=== PATIENT | female | born 1930 | race Caucasian/White ===

== ENCOUNTER → 2016-03-24 | Outpatient (CLI) | payer BC ==
[~2016-03-24] MED LIST: AMLO2.5T PO; ASPEC81 PO; ATOR-22 PO; ATV/1 PO; CLBCRM30 EXT; ESCI1TAB9 PO; GABA-112 PO; GABA1CAP PO; MAGN400T24 PO; MECL25TA2 PO; METO50TA16 PO; PROAIR HFA INH; TRIA75TA53 PO; TRMCR130WC TOP
[2016-03-24 13:15] LABS: BASO % 0.8 %; BASO ABS # 0.05 K/uL (0-0.2); COMPLETE YES; EOS % 1.2 %; HEMATOCRIT 39.6 % (37-47); IG% 0.2 %; LYMPH % 16.3 %; LYMPH ABS # 0.98 K/uL (1.2-3.4); MEAN CELL VOLUME 92.7 fL (80-100); MEAN CORPUSCULAR HEMOGLOBIN 30.4 pg (25-34); MEAN CORPUSCULAR HGB CONC 32.8 g/dl (32-36); MEAN PLATELET VOLUME 9.8 fL (7.4-10.4); MONO % 9.8 %; NEUT % 71.7 %; PLATELET COUNT 222 K/uL (130-400); RED BLOOD COUNT 4.27 M/uL (4.2-5.4); WHITE BLOOD COUNT 6.02 K/uL (4.8-10.8)
[2016-03-24 13:32] LABS: ALB/GLOB RATIO 1.1 (0.9-2); ALT/SGPT 20 U/L (12-78); AST/SGOT 17 U/L (15-37); BLOOD UREA NITROGEN 18 mg/dl (7-18); BUN/CREATININE RATIO 16.2 (10-20); CALCIUM 9.1 mg/dl (8.5-10.1); CARBON DIOXIDE 32 mmol/L (21-32); CHLORIDE 100 mmol/L (98-107); GLUCOSE 91 mg/dl (70-99); SODIUM 141 mmol/L (136-145)
[2016-03-24 13:33] LABS: ALKALINE PHOSPHATASE 136 U/L (45-117)
== END | disposition home or self-care (01) ==
LOC: C.LABBC 11:53
PROVIDERS: ATTEND Internal Medicine
DX: G60.9 Hereditary and idiopathic neuropathy, unspecified (principal)

== ENCOUNTER → 2016-09-15 | Outpatient (CLI) | payer BC ==
--- NOTE | 2016-09-15 13:43 | MAMMOGRAPHY REPORT ---
BILATERAL DIGITAL SCREENING MAMMOGRAM WITH CAD: 09/15/2016 CLINICAL HISTORY: Routine screening. Patient has no complaints. TECHNIQUE: Current study was also evaluated with a Computer Aided Detection (CAD) system. Bilateral CC and MLO views were obtained. COMPARISON: Comparison is made to exams dated: 09/15/2015 mammogram, 09/11/2014 mammogram, 09/10/2013 ma mmogram, 09/07/2011 mammogram, 09/01/2010 mammogram, and 09/07/2012 mammogram - [facility] nter. BREAST COMPOSITION: There are scattered areas of fibroglandular density in both breasts. FINDINGS: No suspicious masses, calcifications, or areas of architectural distortion are noted in ei ther breast. There has been no significant interval change compared to prior exams. Scattered bilater al benign-appearing calcifications are not significantly changed. IMPRESSION: ACR BI-RADS CATEGORY 2: BENIGN There is no mammographic evidence of malignancy. A 1 year screening mammogram is recommended. The pa tient will receive written notification of the results. Approximately 10% of breast cancers are not detected with mammography. A negative mammographic report should not delay biopsy if a clinically suggestive mass is present. Keena Enriquez M.D. ah/:09/15/2016 12:14:01 Occupational Health Physician: Tawanna TORRES(R)(M), [facility] letter sent: Normal 1/2 BI-RADS Code: ACR BI-RADS Category 2: Benign
== END | disposition home or self-care (01) ==
LOC: C.MAMM 10:53
PROVIDERS: ATTEND Internal Medicine
DX: Z12.31 Encounter for screening mammogram for malignant neoplasm of breast (principal)

== ENCOUNTER → 2016-10-27 | Outpatient (CLI) | payer BC ==
[2016-10-27 13:30] LABS: BASO % 0.8 %; BASO ABS # 0.05 K/uL (0-0.2); COMPLETE YES; EOS % 1.1 %; IG% 0.3 %; LYMPH % 16.6 %; LYMPH ABS # 1.06 K/uL (1.2-3.4); MEAN CELL VOLUME 92.6 fL (80-100); MEAN CORPUSCULAR HEMOGLOBIN 30.6 pg (25-34); MEAN PLATELET VOLUME 9.5 fL (7.4-10.4); MONO % 10.5 %; NEUT % 70.7 %; PLATELET COUNT 250 K/uL (130-400); RED BLOOD COUNT 4.32 M/uL (4.2-5.4); WHITE BLOOD COUNT 6.38 K/uL (4.8-10.8)
[2016-10-27 13:55] LABS: BLOOD UREA NITROGEN 17 mg/dl (7-18); BUN/CREATININE RATIO 15.4 (10-20); CALCIUM 9.1 mg/dl (8.5-10.1); CARBON DIOXIDE 33 mmol/L (21-32); CHLORIDE 96 mmol/L (98-107); GLUCOSE 100 mg/dl (70-99); POTASSIUM 3.7 mmol/L (3.5-5.1); SODIUM 134 mmol/L (136-145)
== END | disposition home or self-care (01) ==
LOC: C.LABBC 11:06
PROVIDERS: ATTEND Internal Medicine
DX: E53.8 Deficiency of other specified B group vitamins (principal)

== ENCOUNTER → 2016-10-29 | Outpatient (CLI) | payer BC ==
--- NOTE | 2016-10-29 10:30 | DIAGNOSTIC IMAGING REPORT ---
(BARIUM SWALLOW) ESOPHAGUS CLINICAL HISTORY: R13.10 [id number] COMPARISON STUDY: None FLUOROSCOPY TIME: 1.1 minutes. FINDINGS: Patient initiates swallowing function well. There is no evidence for aspiration. Esophagus is normal in course and caliber. Small hiatal hernia. Mild gastroesophageal reflux. Patient ingested the barium tablet easily with which passed easily to the stomach. IMPRESSION: 1. Normal swallowing function. 2. Small hiatal hernia. 3. Mild gastroesophageal reflux. The above report was generated using voice recognition software. It may contain grammatical, syntax or spelling errors. Electronically signed by: Abdoul Petersen M.D. 10/29/2016 10:28 AM Dictated Date/Time: 10/29/2016 10:27 AM
== END | disposition home or self-care (01) ==
LOC: C.RAD 09:31
PROVIDERS: ATTEND Internal Medicine
DX: R13.10 Dysphagia, unspecified (principal)

== ENCOUNTER → 2016-11-09 | Outpatient (CLI) | payer BC ==
--- NOTE | 2016-11-09 13:41 | DIAGNOSTIC IMAGING REPORT ---
VIDEO SWALLOW HISTORY: R13.10 Dysphagia [id number] TECHNIQUE: Video fluoroscopic evaluation of swallowing was performed in the AP and lateral projections by the speech pathology staff. The patient is fed nectar-thick and thin liquid barium, a barium coated wafer, and barium pudding. FLUOROSCOPY TIME: 2.1 minutes. A cine loop submitted. COMPARISON STUDY: Barium swallow 10/29/2016. FINDINGS: There is normal hyoid excursion and epiglottic deflection. There are a few episodes of penetration with the thin liquid barium. However, no evidence for aspiration. Mild to moderate vallecular residue with the thicker barium consistencies. This clears during the second swallow. Mild esophageal dysmotility. IMPRESSION: 1. No aspiration identified. 2. Please see the speech pathologist report for detailed findings and recommendations. Electronically signed by: Darius Merchant M.D. 11/09/2016 1:39 PM Dictated Date/Time: 11/09/2016 1:38 PM
--- NOTE | 2016-11-09 14:51 | SWALLOWING EVALUATION ---
HISTORY: This 86 year old woman was referred for a video swallow study at [facility] in order to rule out aspiration and identify the safest consistencies for optimal oral intake. The patient reports that she has episodes of coughing while she eats, and it is not specific to any food or liquid. She participated in a Barium Swallow Study on 10/29/16, which revealed normal swallowing function, but the patient was found to have a small hiatal hernia and mild reflux. PMH is significant for DVT, HTN, and pneumonia. Currently the patient's diet is regular. PROCEDURE: The patient was seen in the Radiology Department of [facility] for the VFSS. Cursory examination of the oral cavity revealed and upper denture that fit well, natural lowers in good condition for her age. Movement of the articulators was wnl. The patient was seated upright on a stool and was viewed in both the Anterior-Posterior (A-P) and Lateral planes. Volitional phonation exercises completed in the A-P plane revealed bilateral vocal fold movement and vocal intensity was judged to be wnl. In the lateral plane, the patient was given the following boluses: 1 tsp. thin liquid barium x 2, single swallow thin liquid barium self-presented from a cup x2, sequential swallows of thin liquid barium self-presented from a straw, 1 tsp. nectar-thick liquid barium, single swallow nectar-thick liquid barium self-presented from a cup x1, 1 tsp. barium pudding, and 1 club cracker coated in barium pudding. The patient was then repositioned into the A-P plane and given the following boluses: 1 cup sip nectar thick barium and 1 tsp. barium pudding. RESULTS: Oral Stage: Lip closure was adequate. The patient was able to maintain a cohesive liquid bolus upon command without lateral or posterior escape. Mastication and lingual motion for bolus transport was noted to be slow. There was a retention lining the tongue and palate after the swallow. The initiation of the pharyngeal swallow was delayed and triggered when the bolus head reached valleculae. Pharyngeal Stage: Soft palate elevation was complete. Laryngeal elevation revealed partial superior movement of the thyroid cartilage and partial approximation of the arytenoids to the epiglottic base. Anterior hyoid excursion was partially reduced. Epiglottic deflection was incomplete where deflection did not progress past the horizontal position. Laryngeal vestibular closure was incomplete as a narrow column of contrast was located in the vestibule at the height of the swallow. The pharyngeal stripping wave was present yet diminished. Pharyngeal contraction was complete. There was partial distention and partial duration of the opening to the pharyngoesophageal segment (PES). Tongue base retraction was reduced, with a narrow column of contrast located between the tongue base and pharyngeal wall during the swallow. There was retention located in the valleculae and along the epiglottis after the swallow. There was evidence of laryngeal penetration of thin liquids without aspiration. The patient also presented with increased vallecular retention as viscosity of the boluses increased. A liquid wash or second swallow assisted to clear the majority of the retention. No other difficulty identified. Esophageal stage: There was distal esophageal retention with retrograde flow below the PES that cleared with a liquid wash. SUMMARY/RECOMMENDATIONS: This patient presents with mild verónica-pharyngeal dysphagia. The patient also presents with s/s of esophageal dysfunction. The following is recommended: 1. "Slippery" regular diet, thin liquids. Avoid foods that are dry, thick, pasty, or doughy. Use condiments such as butter, gravy, and sauce to assist in keeping food moist and slippery. 2. Aspiration precautions, straws OK. Fully upright while eating and 30 minutes after meals. Do not lay flat, elevate head of the bed to at least 30 degrees at all time, to include while sleeping. 3. Safe swallow strategies: Alternate solids and liquids. Rest breaks, small frequent meals as needed. 4. Consider follow up GI as needed with any increased c/o esophageal dysfunction A summary of the results and recommendations was discussed with the patient and family immediately following the study with verbal understanding. Also provided with verbal and written education re: a slippery diet with verbal understanding. Thank you for referral of this patient. Please contact me at if any additional information is needed.
== END | disposition home or self-care (01) ==
LOC: C.RAD 12:48
PROVIDERS: ATTEND Internal Medicine
DX: R13.10 Dysphagia, unspecified (principal)

== ENCOUNTER → 2017-01-19 | Outpatient (CLI) | payer BC ==
--- NOTE | 2017-01-19 16:28 | DIAGNOSTIC IMAGING REPORT ---
TWO VIEW CHEST CLINICAL HISTORY: Chest wall pain of several days' duration.. FINDINGS: PA and lateral chest radiographs are compared to study dated 12/01/2015 and correlated with chest CT dated 03/06/2012. The cardiomediastinal silhouette is unremarkable. There is atherosclerotic calcification of the thoracic aorta. Emphysema and chronic interstitial thickening are similar to previous. There are scattered calcified granulomas. Trace pleural effusions are suspected. No airspace consolidation is seen typical for pneumonia. Apical scarring is observed. There is no pneumothorax. The skeletal structures are osteopenic. The bony thorax appears intact. IMPRESSION: 1. Emphysema. 2. Trace pleural effusions are noted. No airspace consolidation is identified typical for pneumonia Electronically signed by: Stefan Peralta M.D. 01/19/2017 4:27 PM Dictated Date/Time: 01/19/2017 4:25 PM
--- NOTE | 2017-01-19 16:49 | DIAGNOSTIC IMAGING REPORT ---
THORACIC SPINE 3 VIEWS ROUTINE HISTORY: Pain CHEST WALL PAIN COMPARISON: None. FINDINGS: There is no fracture. No subluxation. Moderate degenerative disc changes throughout the entire thoracic region. No evidence for compression deformity. IMPRESSION: No fracture or subluxation within the thoracic spine. Moderate degenerative disc changes throughout The above report was generated using voice recognition software. It may contain grammatical, syntax or spelling errors. Electronically signed by: Abdoul Petersen M.D. 01/19/2017 4:48 PM Dictated Date/Time: 01/19/2017 4:48 PM
== END | disposition home or self-care (01) ==
LOC: C.RADBC 16:03
PROVIDERS: ATTEND Physician Assistant
DX: R07.89 Other chest pain (principal); J43.9 Emphysema, unspecified; J90 Pleural effusion, not elsewhere classified

== ENCOUNTER → 2017-03-16 | Outpatient (CLI) | payer BC ==
[2017-03-16 13:22] LABS: ALBUMIN 3.9 gm/dl (3.4-5.0); ALT/SGPT 18 U/L (12-78); BLOOD UREA NITROGEN 15 mg/dl (7-18); CALCIUM 8.9 mg/dl (8.5-10.1); CARBON DIOXIDE 31 mmol/L (21-32); CHOLESTEROL 174 mg/dl (0-200); GLUCOSE 95 mg/dl (70-99); POTASSIUM 3.8 mmol/L (3.5-5.1); SODIUM 132 mmol/L (136-145)
[2017-03-16 13:33] LABS: ALKALINE PHOSPHATASE 115 U/L (45-117); AST/SGOT 16 U/L (15-37); LDL CHOLESTEROL CALCULATED 74 mg/dl; TOTAL PROTEIN 7.7 gm/dl (6.4-8.2)
== END | disposition home or self-care (01) ==
LOC: C.LABBFT 10:30
PROVIDERS: ATTEND Internal Medicine
DX: E78.5 Hyperlipidemia, unspecified (principal); E53.8 Deficiency of other specified B group vitamins

== ENCOUNTER → 2017-05-23 | Outpatient (CLI) | payer BC ==
[~2017-05-23] MED LIST changes: +GABA100C13 PO; -GABA1CAP PO
--- NOTE | 2017-05-24 06:22 | PAP/PSG TECHNICIAN REPORT ---
[facility] Well Puller Polysomnogram Report Study name: None Report date: 05/24/2017 Study date: 05/23/2017 Referring Physician: Dr. Burton Borja Name: SUDHIR ANDERSON Interpreting Physician: Dario Avina M.D. Date of : 1930 Well Puller: Tameka Knott RPSGT. Sex: Female Age: 86 StudyType: PSG Weight: 163 lbs Height: 86 years, Height Neck Circum:15.25in. BMI: Medications: Pantoprazole 40mg, Lorazepam 1mg, Pro Air HFA 108mcg/act, Atorvastatin 20mg, Amlodipine 2.5mg, Metoprolol 50mg, Triamterene -HCTZ 37.5-25mg, Escitalopram 10mg, Gabapentin 100mg, Meclizine 25mg, Cyanocobalamin 1000mcg/ml, EDD63es, Magnesium Oxide 400mg Patient History Study started on room air with no ETCO2 monitoring in room #8. 86 yr old female here tonight for a possible split night study. She was diagnosed with JUAN but has not been compliant. She is fatigued. She had surgery on her nose and has not used her cpap in over a year because the mask irritated her nose. She has been told that she snores. She has headaches. Her ESS=8/21.Neck circ=15.25inches. Parameters Monitored NPSG: E1-M2, E2-M1, Fp1-M2, Fp2-M1, F3-M2, F4-M2, F4-M1, C3-M2, C4-M2, C4-M1, O1-M2, O2-M2, O2-M1, T3-M2, T4-M1, P3-M2, P4-M1, CHIN1, CHIN2, HR, EKG, Legs, PFLOW, SNOR, FLOW, CFLOW, Tidal Volume, THOR, ABDO, SpO2, PLTH, CPRESS, ETCO2 Wave, ETCO2, pH Sleep Architecture Sleep Stages Time at Lights Off 8:55:16 PM STAGES Time (min.) TST (%) Time at Lights On 5:32:16 AM Wake 228.0 -- Total Recording Time (TRT) 517.00 min. N1 6.5 2 Total Sleep Period (TSP) 395.5 min. N2 212.5 74 Total Sleep Time (TST) 289.0min. N3 49.5 17 Awake Time 228.0 min. REM 20.5 7 Wake after Sleep Onset 153.5 min. Sleep Efficiency (SE) 56 % Sleep Onset Latency (MAY) 74.5 min. Number of Stage 1 Shifts None Awakenings 10 Stage Changes 39 Number of REM periods 1 REM 20.5 7 REM Latency 375.0 min. NREM 268.5 93 Body Position Analysis Supine Right Left Side Prone Vertical Total Sleep Time (min.) 203.1 115.0 96.5 211.50 0.0 0.0 Total Sleep Time (%) 27% 40% 33% 73 0% N/A% Total Sleep Time REM (min.) 20.5 0.0 0.0 None 0.0 0.0 Total Sleep Time NREM (min.) 57.0 115.0 96.5 None 0.0 0.0 Intermittent Wake (min.) 125.6 55.9 46.5 None 0.0 0.0 Total Sleep Period (%) 21% None None None None None Arousals Myoclonus (PLM) * Events Count Index Events Count Index Spontaneous 10 2 Events Awake (PLMW) 29 7.6 Respiratory 0 0.0 Events Asleep w/ Arousal (PLMA) 0 0.0 PLM 0 0 Events Asleep w/o Arousal (PLMS) 66 13.7 Snoring 3 1 Total Asleep 66 13.7 Total 13 3 Total 95 11 Respiratory Analysis * CA OA MA CH H RERA Total Count 0 1 0 0 31 0 32 Index 0.0 0.2 0.0 0 6.4 0 6.6 Mean Duration 0.0 29.4 0.0 0.00 19.7 0.0 20.0 Longest Duration 0.0 29.4 0.0 0.00 0.0 0.0 44.1 Respiratory Event Summary Total Supine ~Supine Right Left Prone REM NREM Apneas Count 1 1 0 0 0 N/A 0 1 Index 0.2 1 0 0.0 0.0 N/A 0 0 Hypopneas (4% Desat) Count 31 11 20 12 8 N/A 7 24 Index 6.4 8.5 6 6.3 5.0 N/A 20.5 5.4 Apneas & All Hypopneas Count 32 12 20 12 8 N/A 7 25 Index 6.6 9 6 6 5 N/A 20.5 5.6 Respiratory Events (Furniture Installer+All Hyp+RERA) Count 32 12 20 12 8 N/A 7 25 Index 6.6 9 6 6.3 5.0 N/A 20.5 5.6 Respiratory Related Arousal Count 0 12 0 0 0 N/A 0 0 Index 0.0 0 0 0 0 N/A 0 0 Snoring Analysis Supine Right Left Prone REM NREM Total Snore duration 2.6 min Snores count 38 45 14 N/A 31 66 97 Snore mean duration 1.6 Sec Snores index 29 23 9 N/A 90.7 14.7 20.1 TST with snoring (%) 0.9% Desaturation Event Summary: Minimum %SpO2 Event Count Mean/Min/Max Duration(sec.) Desaturation Index % Time In Bed > 90 4 18.4 / 16.8 / 21.0 5.3 8.8 86 - 90 40 20.1 / 9.0 / 57.5 7.6 61.3 81 - 85 22 20.7 / 4.3 / 57.5 9.1 28.0 76 - 80 9 18.4 / 4.5 / 26.8 55.2 1.9 71 - 75 0 N/A 0.0 0.1 66 - 70 0 N/A 0.0 0.0 61 - 65 0 N/A 0.0 0.0 56 - 60 0 N/A 0.0 0.0 51 - 55 0 N/A 0.0 0.0 < 50 0 N/A 0.0 0.0 Total REM NREM Awake <50% 0.0 min. 0.0 min. 0.0 min. 0.0 min. 51 - 60% 0.0 min. 0.0 min. 0.0 min. 0.0 min. 61 - 70% 0.0 min. 0.0 min. 0.0 min. 0.0 min. 71 - 80% 10.2 min. 10.0 min. 0.2 min. 0.0 min. 81 - 90% 460.3 min. 10.5 min. 267.0 min. 182.7 min. 91 - 100% 45.1 min. 0.0 min. 1.3 min. 43.9 min. Average 87 81 86 88 Minimum SpO2 75 75 79 81 Desaturation Event Index 6.5 46.8 6.5 2.9 # Desat. Events below 89% 56 16 29 11 Time(%) with Saturation below 89% 77.8 4.0 45.6 28.3 Time(min.) with Saturation below 89% 401.3 20.5 235.0 145.7 Time (mins) REM (mins) NREM (mins) % of TST SpO2 Below 90% 45 16 N29 98.0 SpO2 Below 88% 16 0 0 70 Heart Rate Analysis Min (bpm) Max (bpm) Average (bpm) Awake 46 72 56 NREM 47 74 59 REM 51 65 56 Overall 47 74 59 Supplemental O2 Values Minimum O2 level: None Value Start Time End Time Well Puller Comments Mrs. Anderson slept in the right, left and supine positions. Cardiac arrhythmia noted, please see print outs. No PLM's noted. No bruxism noted. Snoring was noted and scored as a 1 on a scale of 1 through 5. (0=no snoring, 5=snoring loud enough to be heard through a closed door or down the [address] way) She did not use the restroom during the night. She stated that she slept about the same as when at home. The final report will be interpreted and signed by a sleep physician. The completed physician report will then be placed in the patient medical record. Therapy (cm H2O) 0 TIB (min.) 517.0 TST (min.) 289.0 Sleep Onset (min.) 74.5 REM Onset From Sleep (min.) 375.0 Sleep Efficiency % 56 Wakefulness (%) 44 Wakefulness (min.) 228.0 NREM 1 (%) 2 NREM 1 (min.) 6.5 NREM 2 (%) 74 NREM 2 (min.) 212.5 NREM 3 (%) 17 NREM 3 (min.) 49.5 REM (%) 7 REM (min.) 20.5 # Arousals 13 Arousal Index 3 # Snore 97 Snore Index 20.1 AHI 6.6 AHI Supine 9 AHI Non-Supine 6 NREM AHI 5.6 REM AHI 20.5 RDI 6.6 # Obstructive Apnea 1 # Central Apnea 0 # Mixed Apnea 0 # Hypopneas 31 RERAs 0 Total Respiratory Events 35 Time Below SpO2 89% (min.) 255.5 Mean NREM SpO2 (%) 86 Mean REM SpO2 (%) 81 Mean Sleep SpO2 (%) 86 Min NREM SpO2 (%) 79 Min REM SpO2 (%) 75 Position Supine (min.) 203.1 Position Non-supine (min.) 211.5 LM Index Sleep 13.7 LM Index NREM 12.7 LM Index REM 26.3 Mean Heart Rate (bpm) 59 Min Heart Rate (bpm) 47
--- NOTE | 2017-05-25 16:38 | POLYSOMNOGRAPH REPORT ---
CLINICAL DATA: 86-year-old female referred by Dr. Madi Borja for a possible split night study. She has a history of sleep apnea, but has not been compliant with CPAP. She had nasal surgery and has not used her CPAP for over a year. She does have headaches. Her Livingston sleepiness score is 8/21. SLEEP ARCHITECTURE: Total sleep period was 395.5 minutes. Total sleep time was 289 minutes divided between 268.5 minutes of non-REM sleep and 20.5 minutes of REM sleep. Sleep latency was delayed at 74.5 minutes. REM latency was delayed at 375 minutes. Sleep efficiency was reduced at 56%. Wake after sleep onset was 153.5 minutes. Sleep consisted of stage N1 2%, stage N2 74%, stage N3 17%, and REM 7%. AROUSAL DATA: 13 arousals recorded for an index of 3 per hour. PLM DATA: 66 limb movements during sleep were noted for an index of 13.7 per hour with no arousals. RESPIRATORY DATA: Very mild sleep apnea was seen. The AHI was 6.6. There was 1 obstructive apneic episode, 29.4 seconds in duration. There were 31 hypopneic episodes with the mean duration of 19.7 seconds. OXIMETRY DATA: Nocturnal hypoxemia was seen. Oxygen jeff was 75% during REM. Mean saturation was 87%. Time below 88% was 16 minutes. EKG: Heart ranged from 47-74 beats per minute. PACs were noted. DIRECTOR WORK'S COMMENTS: The patient slept in the right, left, and supine position. Snoring was mild, rated 1 on a scale of 1-5. IMPRESSION: 1. Mild sleep apnea/hypopnea with an AHI of 6.6. 2. Nocturnal hypoxemia with an average SaO2 of 87%. RECOMMENDATIONS: The patient may benefit from use of an oral appliance, repeat sleep study with CPAP, or possibly use of oxygen at night. Clinical correlation is needed. NASEEM
== END | disposition home or self-care (01) ==
LOC: C.NEUR 20:00
PROVIDERS: ATTEND Internal Medicine
DX: G47.33 Obstructive sleep apnea (adult) (pediatric) (principal)

== ENCOUNTER → 2017-09-16 | Outpatient (CLI) | payer BC ==
[~2017-09-16] MED LIST changes: +GABA-1693 PO; -GABA100C13 PO
--- NOTE | 2017-09-16 14:37 | MAMMOGRAPHY REPORT ---
BILATERAL DIGITAL SCREENING MAMMOGRAM TOMOSYNTHESIS WITH CAD: 09/16/2017 CLINICAL HISTORY: Routine screening. Patient has no complaints. TECHNIQUE: The study was acquired using full field digital technology and interpreted from soft copy. Breast tomosynthesis in addition to standard 2D mammography was performed. Current study was also ev aluated with a Computer Aided Detection (CAD) system. COMPARISON: Comparison is made to exams dated: 09/15/2016 mammogram, 09/15/2015 mammogram, 09/11/2014 see mogram, 09/10/2013 mammogram, 09/07/2012 mammogram, and 09/07/2011 mammogram - [facility]. BREAST COMPOSITION: There are scattered areas of fibroglandular density in both breasts. FINDINGS: No suspicious masses, calcifications, or areas of architectural distortion are noted in either breast . There has been no significant interval change compared to prior exams. Scattered bilateral benign-a ppearing calcifications are not significantly changed. IMPRESSION: ACR BI-RADS CATEGORY 2: BENIGN There is no mammographic evidence of malignancy. A 1 year screening mammogram is recommended.( [id number]) The patient will receive written notification of the results. Some breast cancers are not detected with mammography. A negative mammographic report should not camila y biopsy if a clinically suggestive mass is present. Keena Enriquez M.D. ah/:09/16/2017 12:35:19 Dairy Associate: RT Liang(R)(M), [facility] letter sent: Normal 1/2 BI-RADS Code: ACR BI-RADS Category 2: Benign
== END | disposition home or self-care (01) ==
LOC: C.MAMM 11:09
PROVIDERS: ATTEND Internal Medicine
DX: Z12.31 Encounter for screening mammogram for malignant neoplasm of breast (principal)

== ENCOUNTER 2017-09-28 15:33 | Inpatient (IN) | payer BC, OTHER ==
[~2017-09-28] VITALS: Ht 167.6 cm; Wt 73.1 kg
[~2017-09-28 15:33] MED LIST changes: -ATOR-22 PO; -ESCI1TAB9 PO; -GABA-112 PO
--- NOTE | 2017-09-28 16:05 | EMERGENCY ROOM VISIT NOTE ---
History Report prepared by Missy: Winnie Gomez Under the Supervision of: Dr. Himanshu Parsons M.D. First contact with patient: 15:51 Chief Complaint: SHORTNESS OF BREATH Stated Complaint: LOW O2 LEVELS History of Present Illness The patient is an 87 year old white female with a past medical history of DVT, HTN, and PNA who presents to the ED with a cc of a fall occurring 2 days ago. Positive shortness of breath, productive cough, chills. Negative chest pain, nausea, vomiting, fevers. She reports falling backwards in her bathroom and hitting her head but denies losing consciousness with the fall. The patient reports that she does not think that she hit her abdomen when she fell. Per family, the patient has an inhaler. The patient states that she wears Oxygen at home at night but does not know how much. She denies being on blood thinners for her history of blood clots. Source of History: patient Onset: 2 days ago Position: other (generalized) Quality: other (fall) Associated Symptoms: + chills, + cough, + SOB, No fevers, No chest pain, No nausea, No vomiting Review of Systems See HPI for pertinent positives and negatives. A total of ten systems were reviewed and were otherwise negative. Past Medical & Surgical Medical Problems: (1) DVT (deep venous thrombosis) (2) HTN (hypertension) (3) PNA (pneumonia) (4) Shortness of breath Family History Cancer Hypertension Social History Smoking Status: Never Smoker Alcohol Use: none Marital Status: Housing Status: lives with family Occupation Status: retired Current/Historical Medications Scheduled Amlodipine (Norvasc), 2.5 MG PO BID Aspirin Enteric Coated (Ecotrin Or Generic), 81 MG PO DAILY Atorvastatin (Lipitor), 20 MG PO DAILY Budesonide/Formoterol Fumarate (Symbicort 80/4.5 Inhaler), 2 PUFFS INH BID Cyanocobalamin (Vitamin B-12), 1,000 MCG IM MONTHLY Escitalopram Oxalate (Lexapro), 10 MG PO DAILY Gabapentin (Neurontin), 100 MG PO QAM Gabapentin (Neurontin), 200 MG PO QPM Lorazepam (Ativan), 1 MG PO BID PRN Magnesium Oxide (Mg Supplement (Magnesium Oxide), 400 MG PO BID Metoprolol Tartrate (Lopressor) (Lopressor), 50 MG PO BID Pantoprazole (Protonix), 40 MG PO DAILY Triamterene/Hctz (Triamterene/Hctz 37.5-25MG), 1 TAB PO DAILY Scheduled PRN Meclizine Hcl (Meclizine Hcl), 1 TAB PO TID PRN for Dizziness or Vertigo Triamcinolone Acet (Aristocort 0.1%), 1 APPL TOP TID PRN for BREAK OUTS [Proair Hfa 108], 2 PUFF INH Q4 PRN for SOB/Wheezing Allergies Coded Allergies: Levofloxacin (Verified Allergy, Unknown, UNKNOWN, 09/28/17) INFO FROM [facility] Doxycycline (Verified Adverse Reaction, Mild, NAUSEA, 03/30/12) Codeine (Verified Adverse Reaction, Unknown, GI UPSET, 12/23/11) Sulfa Drugs (Verified Adverse Reaction, Unknown, NAUSEA AND VOMITTING, ) Physical Exam Vital Signs Date Time Temp Pulse Resp B/P (MAP) Pulse Ox O2 Delivery O2 Flow Rate FiO2 09/28/17 20:12 Nasal Cannula 2.0 09/28/17 19:25 122 22 117/80 87 Room Air 09/28/17 17:37 83 19 97 Nasal Cannula 2.0 09/28/17 17:33 90 23 154/74 96 Nasal Cannula 2.0 09/28/17 16:13 98 Nasal Cannula 2.0 09/28/17 16:13 98 Nasal Cannula 2.0 09/28/17 16:06 85 Room Air 09/28/17 15:46 37.9 92 16 157/73 81 Room Air Physical Exam GENERAL: Awake, alert, well-appearing, NAD, wearing glasses, nasal cannula in place HENT: Normocephalic, atraumatic. EYES: Normal conjunctiva. Sclera non-icteric. PERRL. No anisocoria. NECK: Supple. No nuchal rigidity. FROM. RESPIRATORY: decreased breath sounds throughout, no rhonchi, wheezing, crackles CARDIAC: RRR, no MRG ABDOMEN: Soft, NTND, BS+, ecchymosis to the right lower abdomen, no abdominal pain MSK: No chest wall TTP, no LE edema, no reproducible back pain NEURO: GCS 15, CN 2-12 intact, moves all 4s on command SKIN: No rash or jaundice noted. Medical Decision & Procedures ER Provider Diagnostic Interpretation: Radiology results as stated below per my review and radiologist interpretation: CHEST ONE VIEW PORTABLE CLINICAL HISTORY: Respiratory distress. Dyspnea. COMPARISON STUDY: Chest radiograph December 20, 2016. FINDINGS: There is no pneumothorax or pleural effusion. There is no evidence for pulmonary edema. Cardiomediastinal silhouette is normal. Apparent mild bibasilar opacities favor normal vessels or atelectasis. There is no lobar consolidation. IMPRESSION: 1. No acute cardiopulmonary findings. 2. Apparent bibasilar opacities which likely reflect atelectasis or normal vessels. No lobar consolidation. Electronically signed by: Tito Plata M.D. 09/28/2017 4:24 PM Dictated Date/Time: 09/28/2017 4:22 PM HEAD WITHOUT CONTRAST (CT) CT DOSE: HISTORY: Trauma s/p fall Tuesday TECHNIQUE: Multiaxial CT images of the head were performed without the use of intravenous contrast. A dose lowering technique was utilized adhering to the principles of ALARA. Comparison: None. Findings: The paranasal sinuses and mastoid air cells are clear. The calvarium and skull base are intact. The ventricles and sulci are within normal limits. There is no mass, hematoma, midline shift, or acute infarct. Impression: No acute intracranial abnormality. The above report was generated using voice recognition software. It may contain grammatical, syntax or spelling errors. Electronically signed by: Abdoul Petersen M.D. 09/28/2017 5:05 PM Dictated Date/Time: 09/28/2017 5:04 PM CERVICAL SPINE W/O CT DOSE: HISTORY: Trauma s/p fall TECHNIQUE: Multiaxial CT images of the cervical spine were performed and reformatted in the sagittal and coronal plane without the use of contrast. A dose lowering technique was utilized adhering to the principles of ALARA. COMPARISON: None. FINDINGS: No fractures. No subluxation. Prevertebral soft tissues and the C1-C2 interval are intact. No pneumothorax. IMPRESSION: No fractures within the cervical spine. Moderate degenerative disc change. The above report was generated using voice recognition software. It may contain grammatical, syntax or spelling errors. Electronically signed by: Abdoul Petersen M.D. 09/28/2017 5:03 PM Dictated Date/Time: 09/28/2017 5:[address] OF THE CHEST WITHOUT IV CONTRAST CLINICAL HISTORY: Fall. Hypoxia. COMPARISON STUDY: Chest CT March 06, 2012 and chest radiograph performed earlier today. CT DOSE: 1276.02 mGy.cm TECHNIQUE: Axial images of the chest were obtained without IV contrast. Images were reviewed in the axial, sagittal, and coronal planes. IV contrast was not administered for this examination. A dose lowering technique was utilized adhering to the principles of ALARA. FINDINGS: No mediastinal hematoma is noted. There is mild dilatation of the central pulmonary arteries. There is no pericardial effusion. No pneumothorax or pleural effusion is noted. Biapical scarring is noted. No pulmonary contusion is noted. There is no evidence for pneumonia. No acute rib or thoracic spine fracture is identified. There are no suspicious pulmonary nodules. Left adrenal adenoma is unchanged since prior CT. Upper abdomen is otherwise unremarkable. Relative lucency of the left lung is noted. IMPRESSION: 1. No acute intrathoracic findings on unenhanced CT. 2. Mild dilatation of the central pulmonary arteries which raises the possibility of pulmonary arterial hypertension. 3. Biapical scarring. Electronically signed by: Tito Plata M.D. 09/28/2017 5:10 PM Dictated Date/Time: 09/28/2017 5:02 PM (CHEST FOR PE) ANGIO WITH CT DOSE: 516.52 mGy.cm HISTORY: Chest pain hypoxia TECHNIQUE: Multiaxial CT images of the chest were performed following the intravenous administration of contrast to evaluate the pulmonary arteries. Maximal intensity projection images were also obtained. A dose lowering technique was utilized adhering to the principles of ALARA. COMPARISON STUDY: 8:15 FINDINGS: There is a normal caliber thoracic aorta with no evidence for dissection. There is no evidence for pulmonary embolus. No pleural effusions. No pneumothorax. The liver and spleen are unremarkable. No mediastinal or hilar lymphadenopathy. The central airways are patent. The lungs are clear. IMPRESSION: No evidence for pulmonary embolus. The lungs are clear. The above report was generated using voice recognition software. It may contain grammatical, syntax or spelling errors. Electronically signed by: Abdoul Petersen M.D. 09/28/2017 6:58 PM Dictated Date/Time: 09/28/2017 6:46 PM Laboratory Results 09/28/17 16:32 Red Blood Count 4.00, Mean Corpuscular Volume 93.8, Mean Corpuscular Hemoglobin 30.5, Mean Corpuscular Hemoglobin Concent 32.5, Mean Platelet Volume 9.6, Neutrophils (%) (Auto) 77.5, Lymphocytes (%) (Auto) 8.3, Monocytes (%) (Auto) 9.2, Eosinophils (%) (Auto) 4.3, Basophils (%) (Auto) 0.4, Neutrophils # (Auto) 5.21, Lymphocytes # (Auto) 0.56, Monocytes # (Auto) 0.62, Eosinophils # (Auto) 0.29, Basophils # (Auto) 0.03 09/28/17 16:32 Test 09/28/17 16:32 09/28/17 17:30 09/28/17 18:24 White Blood Count 6.73 K/uL (4.8-10.8) Red Blood Count 4.00 M/uL (4.2-5.4) Hemoglobin 12.2 g/dL (12.0-16.0) Hematocrit 37.5 % (37-47) Mean Corpuscular Volume 93.8 fL (80-100) Mean Corpuscular Hemoglobin 30.5 pg (25-34) Mean Corpuscular Hemoglobin Concent 32.5 g/dl (32-36) Platelet Count 164 K/uL (130-400) Mean Platelet Volume 9.6 fL (7.4-10.4) Neutrophils (%) (Auto) 77.5 % Lymphocytes (%) (Auto) 8.3 % Monocytes (%) (Auto) 9.2 % Eosinophils (%) (Auto) 4.3 % Basophils (%) (Auto) 0.4 % Neutrophils # (Auto) 5.21 K/uL (1.4-6.5) Lymphocytes # (Auto) 0.56 K/uL (1.2-3.4) Monocytes # (Auto) 0.62 K/uL (0.11-0.59) Eosinophils # (Auto) 0.29 K/uL (0-0.5) Basophils # (Auto) 0.03 K/uL (0-0.2) RDW Standard Deviation 43.4 fL (36.4-46.3) RDW Coefficient of Variation 12.7 % (11.5-14.5) Immature Granulocyte % (Auto) 0.3 % Immature Granulocyte # (Auto) 0.02 K/uL (0.00-0.02) Prothrombin Time 10.6 SECONDS (9.0-12.0) Prothromb Time International Ratio 1.0 (0.9-1.1) Activated Partial Thromboplast Time 27.7 SECONDS (21.0-31.0) Partial Thromboplastin Ratio 1.1 Anion Gap 6.0 mmol/L (3-11) Est Creatinine Clear Calc Drug Dose 39.5 ml/min Estimated GFR () 55.9 Estimated GFR (Non- 48.3 BUN/Creatinine Ratio 12.9 (10-20) Calcium Level 8.9 mg/dl (8.5-10.1) Phosphorus Level 2.4 mg/dl (2.5-4.9) Magnesium Level 1.9 mg/dl (1.8-2.4) Total Bilirubin 0.9 mg/dl (0.2-1) Aspartate Amino Transf (AST/SGOT) 15 U/L (15-37) Alanine Aminotransferase (ALT/SGPT) 16 U/L (12-78) Alkaline Phosphatase 149 U/L (45-117) Troponin I < 0.015 ng/ml (0-0.045) Pro-B-Type Natriuretic Peptide 410 pg/ml (0-1800) Total Protein 7.8 gm/dl (6.4-8.2) Albumin 3.7 gm/dl (3.4-5.0) Globulin 4.1 gm/dl (2.5-4.0) Albumin/Globulin Ratio 0.9 (0.9-2) Venous Blood pH 7.36 (7.36-7.41) Venous Blood Partial Pressure CO2 64 mmHg (38.0-50.0) Venous Blood Partial Pressure O2 27 mmHg Venous Blood HCO3 35 mmol/L Venous Blood Oxygen Saturation < 60.0 % Venous Blood Base Excess 8.0 mEq/L Urine Color YELLOW Urine Appearance CLOUDY (CLEAR) Urine pH 6.5 (4.5-7.5) Urine Specific [place] 1.013 (1.000-1.030) Urine Protein NEG (NEG) Urine Glucose (UA) NEG (NEG) Urine Ketones NEG (NEG) Urine Occult Blood NEG (NEG) Urine Nitrite POS (NEG) Urine Bilirubin NEG (NEG) Urine Urobilinogen POS (NEG) Urine Leukocyte Esterase SMALL (NEG) Urine WBC (Auto) 10-30 /hpf (0-5) Urine RBC (Auto) 0-4 /hpf (0-4) Urine Hyaline Casts (Auto) 1-5 /lpf (0-5) Urine Epithelial Cells (Auto) >30 /lpf (0-5) Urine Bacteria (Auto) 4+ (NEG) Urine Renal Epithelial Cells 0-5 /lpf (0-5) Laboratory results reviewed by me Medications Administered Medications (Trade) Dose Ordered Sig/Adriana Route Start Time Stop Time Status Last Admin Dose Admin Albuterol/ Ipratropium (Duoneb) 12 ml ONE ONCE INH 09/28/17 16:15 09/28/17 16:16 DC 09/28/17 17:37 12 ML Methylprednisolone Sodium Succinate (Solu-Medrol IV) 125 mg NOW STAT IV 09/28/17 16:07 09/28/17 16:09 DC 09/28/17 17:27 125 MG Ceftriaxone Sodium (Rocephin Inj) 1 gm NOW STAT IV 09/28/17 16:41 09/28/17 16:42 DC 09/28/17 17:30 1 GM Azithromycin (Zithromax Tab) 500 mg NOW ONCE PO 09/28/17 16:45 09/28/17 16:46 DC 09/28/17 17:27 500 MG Acetaminophen (Tylenol Tab) 650 mg NOW STAT PO 09/28/17 16:42 09/28/17 16:43 DC 09/28/17 17:27 650 MG ECG Per My Interpretation Indication: SOB/dyspnea Rate (beats per minute): 84 Rhythm: normal sinus Findings: T-wave inversion (in V2), other (normal intervals, normal axis) ED Course 1601: The patient was evaluated in room C7. A complete history and physical exam was performed. 1734: I checked on the patient and updated her. 1904: I updated the patient. We will see how she does off of her Oxygen. 1916: The patient is satting okay. 1944: Upon reexamination, the patient was resting. I discussed the test results and treatment plan with her. The patient will be evaluated for further management. Medical Decision The patient is an 87 year old white female with a past medical history of DVT, HTN, and PNA who presents to the ED with a cc of a fall occurring 2 days ago. Nursing notes reviewed. Ancillary studies and prior records reviewed. Differential diagnosis: Etiologies such as infections, reactive airway disease, pneumonia, pneumothorax , COPD, CHF, cardiac ischemia, pulmonary embolism, musculoskeletal, gastrointestinal, as well as others were entertained. Patient was seen and evaluated the bedside. The patient did present with concern for some shortness of breath. The patient also had a fall 2 days prior. The patient did strike the back of her head. On exam the patient is a nonfocal neurologic exam. Patient does have some noted wheezing. The patient was told that she may have some sort of asthma but has not been given any sort of formal diagnosis of any asthma COPD or interstitial lung disease. The patient does have some scant bruising over the right abdomen. Given that the patient was febrile patient was given antipyretics and covered with Rocephin and azithromycin will chest coverage given the patient's hypoxia. Patient did have blood work completed along with CT head chest and C-spine. Patient's blood work is fairly unremarkable. Patient is not anemic. The patient had a negative CT head and C-spine. CT chest does not show any evidence of any fractures. No evidence of any pneumonia. Given that the patient has had a prior history of PE and is hypoxic a CT PE protocol was also ordered. The patient had been treated with some duo nebs. The patient was trialed off of oxygen and the patient did desat. The patient does use oxygen at home but only at nighttime. Given that the patient has had some persistent symptoms with noted fever and UTI I believe she would benefit further evaluation and treatment as well as possible evaluation by pulmonology. Patient was given strict follow-up, discharge, and return precautions. All questions were answered. Patient was deemed suitable for outpatient follow-up at this time. Patient agreed with the plan of care and was safely discharged home. Medication Reconcilliation Current Medication List: was personally reviewed by me Blood Pressure Screening Patient's blood pressure: Elevated blood pressure Blood pressure disposition: Referred to PCP will be monitored by hospitalist Consults Time Called: 1923 Consulting Physician: Dr. Milly Nugent Returned Call: 1944 Discussed the patient's case. The patient will be evaluated for further treatment and disposition. Impression Primary Impression: Respiratory failure with hypoxia Additional Impressions: Fever UTI (urinary tract infection) Scribe Attestation The scribe's documentation has been prepared under my direction and personally reviewed by me in its entirety. I confirm that the note above accurately reflects all work, treatment, procedures, and medical decision making performed by me. Departure Information Dispostion Being Evaluated By Hospitalist Referrals Madi Borja M.D. (PCP) Patient Instructions My [facility] Problem Qualifiers Primary Impression: Respiratory failure with hypoxia Chronicity: acute on chronic Qualified Codes: J96.21 - Acute and chronic respiratory failure with hypoxia Additional Impressions: Fever Fever type: unspecified Qualified Codes: R50.9 - Fever, unspecified UTI (urinary tract infection) Urinary tract infection type: acute cystitis Hematuria presence: with hematuria Qualified Codes: N30.01 - Acute cystitis with hematuria
[2017-09-28] MEDS ORDERED: METHYLPREDNISOLONE 125 MG VIAL IV STA (16:07)
[2017-09-28] MEDS ORDERED: ALBUT/IPRATROP 3MG/0.5MG NEB 3 ML VIAL INH ONE (16:15)
--- NOTE | 2017-09-28 16:25 | DIAGNOSTIC IMAGING REPORT ---
CHEST ONE VIEW PORTABLE CLINICAL HISTORY: Respiratory distress. Dyspnea. COMPARISON STUDY: Chest radiograph December 20, 2016. FINDINGS: There is no pneumothorax or pleural effusion. There is no evidence for pulmonary edema. Cardiomediastinal silhouette is normal. Apparent mild bibasilar opacities favor normal vessels or atelectasis. There is no lobar consolidation. IMPRESSION: 1. No acute cardiopulmonary findings. 2. Apparent bibasilar opacities which likely reflect atelectasis or normal vessels. No lobar consolidation. Electronically signed by: Tito Plata M.D. 09/28/2017 4:24 PM Dictated Date/Time: 09/28/2017 4:22 PM
[2017-09-28] MEDS ORDERED: CEFTRIAXONE SOD INJ 1 GM ADDVIAL IV STA (16:41)
[2017-09-28] MEDS ORDERED: ACETAMINOPHEN 325 MG TAB PO STA (16:42)
[2017-09-28] MEDS ORDERED: AZITHROMYCIN 250 MG TAB PO ONE (16:45)
[2017-09-28 16:54] LABS: BASO % 0.4 %; BASO ABS # 0.03 K/uL (0-0.2); EOS % 4.3 %; EOS ABS # 0.29 K/uL (0-0.5); HEMATOCRIT 37.5 % (37-47); HEMOGLOBIN 12.2 g/dL (12.0-16.0); IG# 0.02 K/uL (0.00-0.02); LYMPH % 8.3 %; LYMPH ABS # 0.56 K/uL (1.2-3.4); MEAN CELL VOLUME 93.8 fL (80-100); MEAN CORPUSCULAR HEMOGLOBIN 30.5 pg (25-34); MEAN CORPUSCULAR HGB CONC 32.5 g/dl (32-36); MEAN PLATELET VOLUME 9.6 fL (7.4-10.4); MONO % 9.2 %; MONO ABS # 0.62 K/uL (0.11-0.59); NEUT % 77.5 %; NEUT ABS # 5.21 K/uL (1.4-6.5); PLATELET COUNT 164 K/uL (130-400); RED CELL DISTRIBUTION WIDTH CV 12.7 % (11.5-14.5); RED CELL DISTRIBUTION WIDTH SD 43.4 fL (36.4-46.3); WHITE BLOOD COUNT 6.73 K/uL (4.8-10.8)
[2017-09-28] MEDS ORDERED: ATOR-22 PO (17:01)
[2017-09-28] MEDS ORDERED: ESCI1TAB9 PO (17:03)
--- NOTE | 2017-09-28 17:04 | DIAGNOSTIC IMAGING REPORT ---
CERVICAL SPINE W/O CT DOSE: HISTORY: Trauma s/p fall TECHNIQUE: Multiaxial CT images of the cervical spine were performed and reformatted in the sagittal and coronal plane without the use of contrast. A dose lowering technique was utilized adhering to the principles of ALARA. COMPARISON: None. FINDINGS: No fractures. No subluxation. Prevertebral soft tissues and the C1-C2 interval are intact. No pneumothorax. IMPRESSION: No fractures within the cervical spine. Moderate degenerative disc change. The above report was generated using voice recognition software. It may contain grammatical, syntax or spelling errors. Electronically signed by: Abdoul Petersen M.D. 09/28/2017 5:03 PM Dictated Date/Time: 09/28/2017 5:02 PM
[2017-09-28] MEDS ORDERED: GABA-112 PO (17:05)
--- NOTE | 2017-09-28 17:06 | DIAGNOSTIC IMAGING REPORT ---
HEAD WITHOUT CONTRAST (CT) CT DOSE: HISTORY: Trauma s/p fall Tuesday TECHNIQUE: Multiaxial CT images of the head were performed without the use of intravenous contrast. A dose lowering technique was utilized adhering to the principles of ALARA. Comparison: None. Findings: The paranasal sinuses and mastoid air cells are clear. The calvarium and skull base are intact. The ventricles and sulci are within normal limits. There is no mass, hematoma, midline shift, or acute infarct. Impression: No acute intracranial abnormality. The above report was generated using voice recognition software. It may contain grammatical, syntax or spelling errors. Electronically signed by: Abdoul Petersen M.D. 09/28/2017 5:05 PM Dictated Date/Time: 09/28/2017 5:04 PM
[2017-09-28 17:08] LABS: PTT PATIENT 27.7 SECONDS (21.0-31.0)
--- NOTE | 2017-09-28 17:11 | DIAGNOSTIC IMAGING REPORT ---
CT OF THE CHEST WITHOUT IV CONTRAST CLINICAL HISTORY: Fall. Hypoxia. COMPARISON STUDY: Chest CT March 06, 2012 and chest radiograph performed earlier today. CT DOSE: 1276.02 mGy.cm TECHNIQUE: Axial images of the chest were obtained without IV contrast. Images were reviewed in the axial, sagittal, and coronal planes. IV contrast was not administered for this examination. A dose lowering technique was utilized adhering to the principles of ALARA. FINDINGS: No mediastinal hematoma is noted. There is mild dilatation of the central pulmonary arteries. There is no pericardial effusion. No pneumothorax or pleural effusion is noted. Biapical scarring is noted. No pulmonary contusion is noted. There is no evidence for pneumonia. No acute rib or thoracic spine fracture is identified. There are no suspicious pulmonary nodules. Left adrenal adenoma is unchanged since prior CT. Upper abdomen is otherwise unremarkable. Relative lucency of the left lung is noted. IMPRESSION: 1. No acute intrathoracic findings on unenhanced CT. 2. Mild dilatation of the central pulmonary arteries which raises the possibility of pulmonary arterial hypertension. 3. Biapical scarring. Electronically signed by: Tito Plata M.D. 09/28/2017 5:10 PM Dictated Date/Time: 09/28/2017 5:02 PM
[2017-09-28 17:19] LABS: ALBUMIN 3.7 gm/dl (3.4-5.0); ALKALINE PHOSPHATASE 149 U/L (45-117); ALT/SGPT 16 U/L (12-78); AST/SGOT 15 U/L (15-37); BLOOD UREA NITROGEN 13 mg/dl (7-18); CALCIUM 8.9 mg/dl (8.5-10.1); CARBON DIOXIDE 34 mmol/L (21-32); CREATININE 1.04 mg/dl (0.60-1.20); GLUCOSE 137 mg/dl (70-99); POTASSIUM 3.7 mmol/L (3.5-5.1); SODIUM 132 mmol/L (136-145); TOTAL PROTEIN 7.8 gm/dl (6.4-8.2)
[2017-09-28 17:37] VITALS: PULSE 83; O2SAT 97
[2017-09-28] MEDS ORDERED: OPTIRAY 320 IV PRN (17:45)
--- NOTE | 2017-09-28 18:59 | DIAGNOSTIC IMAGING REPORT ---
(CHEST FOR PE) ANGIO WITH CT DOSE: 516.52 mGy.cm HISTORY: Chest pain hypoxia TECHNIQUE: Multiaxial CT images of the chest were performed following the intravenous administration of contrast to evaluate the pulmonary arteries. Maximal intensity projection images were also obtained. A dose lowering technique was utilized adhering to the principles of ALARA. COMPARISON STUDY: 8:15 FINDINGS: There is a normal caliber thoracic aorta with no evidence for dissection. There is no evidence for pulmonary embolus. No pleural effusions. No pneumothorax. The liver and spleen are unremarkable. No mediastinal or hilar lymphadenopathy. The central airways are patent. The lungs are clear. IMPRESSION: No evidence for pulmonary embolus. The lungs are clear. The above report was generated using voice recognition software. It may contain grammatical, syntax or spelling errors. Electronically signed by: Abdoul Petersen M.D. 09/28/2017 6:58 PM Dictated Date/Time: 09/28/2017 6:46 PM
[2017-09-28] MEDS ORDERED: MAGN1TAB19 PO (19:30)
[2017-09-28] MEDS ORDERED: CYAN100048 IM (19:30)
[2017-09-28] MEDS ORDERED: MECL1TAB42 PO (19:30)
[2017-09-28] MEDS ORDERED: TRIATAB3 PO (19:30)
[2017-09-28] MEDS ORDERED: PANT40TA PO (19:30)
[2017-09-28] MEDS ORDERED: SYMIN/8045 INH (19:30)
[2017-09-28] MEDS ORDERED: PROAIR HFA 108 INH (19:30)
[2017-09-28] MEDS ORDERED: ASPI-319 PO (19:30)
--- NOTE | 2017-09-28 19:52 | History and Physical ---
History & Physical Date & Time of Service: Sep 28, 2017 at 19:52 Chief Complaint: Low O2 Levels Primary Care Physician: Madi Borja M.D. History of Present Illness Source: patient, family History obtained from patient and family. Patient is hard of hearing. Mrs. Preciado is a pleasant 87yo female with history of HTN, remote DVT s/p treatment, remote pulmonary TB s/p treatment presenting with shortness of breath. Patient states that she fell on Tuesday night while going to the bathroom. She fell straight backwards and hit her head on the linoleum floor. She denies chest pain, palpitations, dizziness, loss of consciousness, incontinence or confusion preceding or following the event. She states she did not trip because there was nothing around to trip over. She was down for approximately 1 hour, unable to get up because she felt weakness in her knees. Patient with history of frequent falls. Son has witnessed prior falls in which the patient falls backwards. She is presently complaining of pain in her tailbone as well as a bifrontal headache. She presents to the ER today with complaints of shortness of breath and wheezing that has been progressive since Tuesday. Patient reports dry cough as well. No fevers, chills, sweats, no chest pain, palpitations, edema, orthopnea or weight gain. No nausea/vomiting/diarrhea or constipation. On arrival to the ER patient was found to be 81% on room air. She was placed on 2L supplemental O2 by nasal cannula with improvement in saturation to 97%. Patient recently started on oxygen qHS - 2L by nasal cannula ER Course: Azithromycin 500mg, Tylenol 650mg, Ceftriaxone 1gm, DuoNeb x 1, Solumedrol 125mg Past Medical/Surgical History Medical Problems: DVT Hypertension Fall Anxiety GERD Vertigo/dizziness Surgical History: Appendectomy Family History Cancer Hypertension Social History Smoking Status: Never Smoker Smokeless Tobacco Use: No Alcohol Use: none Drug Use: none Marital Status: Housing status: lives with family Occupational Status: retired Immunizations History of Influenza Vaccine: Yes History of Tetanus Vaccine?: No History of Pneumococcal: Yes History of Hepatitis B Vaccine: No Allergies Coded Allergies: Levofloxacin (Verified Allergy, Unknown, UNKNOWN, 09/28/17) INFO FROM [facility] Doxycycline (Verified Adverse Reaction, Mild, NAUSEA, 03/30/12) Codeine (Verified Adverse Reaction, Unknown, GI UPSET, 12/23/11) Sulfa Drugs (Verified Adverse Reaction, Unknown, NAUSEA AND VOMITTING, ) Home Medications Scheduled Amlodipine (Norvasc), 2.5 MG PO BID Aspirin Enteric Coated (Ecotrin Or Generic), 81 MG PO DAILY Atorvastatin (Lipitor), 20 MG PO DAILY Budesonide/Formoterol Fumarate (Symbicort 80/4.5 Inhaler), 2 PUFFS INH BID Cyanocobalamin (Vitamin B-12), 1,000 MCG IM MONTHLY Escitalopram Oxalate (Lexapro), 10 MG PO DAILY Gabapentin (Neurontin), 100 MG PO QAM Gabapentin (Neurontin), 200 MG PO QPM Lorazepam (Ativan), 1 MG PO BID PRN Magnesium Oxide (Mg Supplement (Magnesium Oxide), 400 MG PO BID Metoprolol Tartrate (Lopressor) (Lopressor), 50 MG PO BID Pantoprazole (Protonix), 40 MG PO DAILY Triamterene/Hctz (Triamterene/Hctz 37.5-25MG), 1 TAB PO DAILY Scheduled PRN Meclizine Hcl (Meclizine Hcl), 1 TAB PO TID PRN for Dizziness or Vertigo Triamcinolone Acet (Aristocort 0.1%), 1 APPL TOP TID PRN for BREAK OUTS [Proair Hfa 108], 2 PUFF INH Q4 PRN for SOB/Wheezing Review of Systems Constitutional: No fever, No chills, No sweats, No weight loss, No weakness, No fatigue Eyes: No worsening of vision ENT: + trouble swallowing (patient reports occasional choking on food, drink and saliva), No hearing loss, No sore throat Respiratory: + cough, + wheezing, + shortness of breath, + dyspnea on exertion , No sputum Cardiovascular: No chest pain, No orthopnea, No edema, No palpitations Abdomen: No pain, No nausea, No vomiting, No diarrhea, No constipation Musculoskeletal: No joint pain, No muscle pain Genitourinary - Female: No dysuria, No urinary frequency Neurologic: No weakness Psychiatric: No depression symptoms Endocrine: No fatigue Hematologic / Lymphatic: + abnormal bleeding/bruising (multiple bruises noted) Integumentary: No rash Physical Exam Vital Signs Date Time Temp Pulse Resp B/P (MAP) Pulse Ox O2 Delivery O2 Flow Rate FiO2 09/28/17 19:25 122 22 117/80 87 Room Air 09/28/17 17:37 83 19 97 Nasal Cannula 2.0 09/28/17 17:33 90 23 154/74 96 Nasal Cannula 2.0 09/28/17 16:13 98 Nasal Cannula 2.0 09/28/17 16:13 98 Nasal Cannula 2.0 09/28/17 16:06 85 Room Air 09/28/17 15:46 37.9 92 16 157/73 81 Room Air General: patient resting comfortably in bed, NAD, AA&O x 4, hard of hearing Skin: warm, dry, intact, multiple areas of ecchymoses - left elbow, left forearm, left back as well as large ecchymosis on right lower abdomen and groin , no palpable hematoma or collection HEENT: NC/AT, PERRL, EOMI, anicteric sclera, conjunctiva without injection, nares patent, moist mucus membranes, dentures in place, no oropharyngeal lesions , neck supple, trachea midline, no thyromegaly, no LAD, no JVD Heart: +S1/S2, regular, tachycardic at 124bpm, no m/r/g Lungs: equal air entry bilaterally, diminished breath sounds in bilateral bases , +diffuse end expiratory wheezing noted L lung field > right Abdomen: soft, NT/ND, no masses/organomegaly/ascites. ecchymosis as above in RLQ and groin Extremities: warm, well perfused, no clubbing/cyanosis or edema, 2+ palpable pulses in UE/LE bilaterally Neuro: MS 5/5 in UE/LE bilaterally, no deficits noted Diagnostics Laboratory Results Results Past 24 Hours Test 09/28/17 16:32 09/28/17 17:30 09/28/17 18:24 Range/Units White Blood Count 6.73 4.8-10.8 K/uL Red Blood Count 4.00 4.2-5.4 M/uL Hemoglobin 12.2 12.0-16.0 g/dL Hematocrit 37.5 37-47 % Mean Corpuscular Volume 93.8 80-100 fL Mean Corpuscular Hemoglobin 30.5 25-34 pg Mean Corpuscular Hemoglobin Concent 32.5 32-36 g/dl Platelet Count 164 130-400 K/uL Mean Platelet Volume 9.6 7.4-10.4 fL Neutrophils (%) (Auto) 77.5 % Lymphocytes (%) (Auto) 8.3 % Monocytes (%) (Auto) 9.2 % Eosinophils (%) (Auto) 4.3 % Basophils (%) (Auto) 0.4 % Neutrophils # (Auto) 5.21 1.4-6.5 K/uL Lymphocytes # (Auto) 0.56 1.2-3.4 K/uL Monocytes # (Auto) 0.62 0.11-0.59 K/uL Eosinophils # (Auto) 0.29 0-0.5 K/uL Basophils # (Auto) 0.03 0-0.2 K/uL RDW Standard Deviation 43.4 36.4-46.3 fL RDW Coefficient of Variation 12.7 11.5-14.5 % Immature Granulocyte % (Auto) 0.3 % Immature Granulocyte # (Auto) 0.02 0.00-0.02 K/uL Prothrombin Time 10.6 9.0-12.0 SECONDS Prothromb Time International Ratio 1.0 0.9-1.1 Activated Partial Thromboplast Time 27.7 21.0-31.0 SECONDS Partial Thromboplastin Ratio 1.1 Sodium Level 132 136-145 mmol/L Potassium Level 3.7 3.5-5.1 mmol/L Chloride Level 92 98-107 mmol/L Carbon Dioxide Level 34 21-32 mmol/L Anion Gap 6.0 3-11 mmol/L Blood Urea Nitrogen 13 7-18 mg/dl Creatinine 1.04 0.60-1.20 mg/dl Est Creatinine Clear Calc Drug Dose 39.5 ml/min Estimated GFR () 55.9 Estimated GFR (Non- 48.3 BUN/Creatinine Ratio 12.9 10-20 Random Glucose 137 70-99 mg/dl Calcium Level 8.9 8.5-10.1 mg/dl Total Bilirubin 0.9 0.2-1 mg/dl Aspartate Amino Transf (AST/SGOT) 15 15-37 U/L Alanine Aminotransferase (ALT/SGPT) 16 12-78 U/L Alkaline Phosphatase 149 45-117 U/L Troponin I < 0.015 0-0.045 ng/ml Pro-B-Type Natriuretic Peptide 410 0-1800 pg/ml Total Protein 7.8 6.4-8.2 gm/dl Albumin 3.7 3.4-5.0 gm/dl Globulin 4.1 2.5-4.0 gm/dl Albumin/Globulin Ratio 0.9 0.9-2 Venous Blood pH 7.36 7.36-7.41 Venous Blood Partial Pressure CO2 64 38.0-50.0 mmHg Venous Blood Partial Pressure O2 27 mmHg Venous Blood HCO3 35 mmol/L Venous Blood Oxygen Saturation < 60.0 % Venous Blood Base Excess 8.0 mEq/L Urine Color YELLOW Urine Appearance CLOUDY CLEAR Urine pH 6.5 4.5-7.5 Urine Specific [place] 1.013 1.000-1.030 Urine Protein NEG NEG Urine Glucose (UA) NEG NEG Urine Ketones NEG NEG Urine Occult Blood NEG NEG Urine Nitrite POS NEG Urine Bilirubin NEG NEG Urine Urobilinogen POS NEG Urine Leukocyte Esterase SMALL NEG Urine WBC (Auto) 10-30 0-5 /hpf Urine RBC (Auto) 0-4 0-4 /hpf Urine Hyaline Casts (Auto) 1-5 0-5 /lpf Urine Epithelial Cells (Auto) >30 0-5 /lpf Urine Bacteria (Auto) 4+ NEG Urine Renal Epithelial Cells 0-5 0-5 /lpf Microbiology Results 09/28/17 Blood Culture, Received Pending 09/28/17 Blood Culture, Received Pending 09/28/17 Urine Culture, Received Pending Diagnostic Radiology (CHEST FOR PE) ANGIO WITH CT DOSE: 516.52 mGy.cm HISTORY: Chest pain hypoxia TECHNIQUE: Multiaxial CT images of the chest were performed following the intravenous administration of contrast to evaluate the pulmonary arteries. Maximal intensity projection images were also obtained. A dose lowering technique was utilized adhering to the principles of ALARA. COMPARISON STUDY: 8:15 FINDINGS: There is a normal caliber thoracic aorta with no evidence for dissection. There is no evidence for pulmonary embolus. No pleural effusions. No pneumothorax. The liver and spleen are unremarkable. No mediastinal or hilar lymphadenopathy. The central airways are patent. The lungs are clear. IMPRESSION: No evidence for pulmonary embolus. The lungs are clear. CT OF THE CHEST WITHOUT IV CONTRAST CLINICAL HISTORY: Fall. Hypoxia. COMPARISON STUDY: Chest CT March 06, 2012 and chest radiograph performed earlier today. CT DOSE: 1276.02 mGy.cm TECHNIQUE: Axial images of the chest were obtained without IV contrast. Images were reviewed in the axial, sagittal, and coronal planes. IV contrast was not administered for this examination. A dose lowering technique was utilized adhering to the principles of ALARA. FINDINGS: No mediastinal hematoma is noted. There is mild dilatation of the central pulmonary arteries. There is no pericardial effusion. No pneumothorax or pleural effusion is noted. Biapical scarring is noted. No pulmonary contusion is noted. There is no evidence for pneumonia. No acute rib or thoracic spine fracture is identified. There are no suspicious pulmonary nodules. Left adrenal adenoma is unchanged since prior CT. Upper abdomen is otherwise unremarkable. Relative lucency of the left lung is noted. IMPRESSION: 1. No acute intrathoracic findings on unenhanced CT. 2. Mild dilatation of the central pulmonary arteries which raises the possibility of pulmonary arterial hypertension. 3. Biapical scarring. CERVICAL SPINE W/O CT DOSE: HISTORY: Trauma s/p fall TECHNIQUE: Multiaxial CT images of the cervical spine were performed and reformatted in the sagittal and coronal plane without the use of contrast. A dose lowering technique was utilized adhering to the principles of ALARA. COMPARISON: None. FINDINGS: No fractures. No subluxation. Prevertebral soft tissues and the C1-C2 interval are intact. No pneumothorax. IMPRESSION: No fractures within the cervical spine. Moderate degenerative disc change. The above report was generated using voice recognition software. It may contain grammatical, syntax or spelling errors. Electronically signed by: Abdoul Petersen M.D. 09/28/2017 5:03 PM Dictated Date/Time: 09/28/2017 5:02 PM CHEST ONE VIEW PORTABLE CLINICAL HISTORY: Respiratory distress. Dyspnea. COMPARISON STUDY: Chest radiograph December 20, 2016. FINDINGS: There is no pneumothorax or pleural effusion. There is no evidence for pulmonary edema. Cardiomediastinal silhouette is normal. Apparent mild bibasilar opacities favor normal vessels or atelectasis. There is no lobar consolidation. IMPRESSION: 1. No acute cardiopulmonary findings. 2. Apparent bibasilar opacities which likely reflect atelectasis or normal vessels. No lobar consolidation. Electronically signed by: Tito Plata M.D. 09/28/2017 4:24 PM Dictated Date/Time: 09/28/2017 4:22 PM HEAD WITHOUT CONTRAST (CT) CT DOSE: HISTORY: Trauma s/p fall Tuesday TECHNIQUE: Multiaxial CT images of the head were performed without the use of intravenous contrast. A dose lowering technique was utilized adhering to the principles of ALARA. Comparison: None. Findings: The paranasal sinuses and mastoid air cells are clear. The calvarium and skull base are intact. The ventricles and sulci are within normal limits. There is no mass, hematoma, midline shift, or acute infarct. Impression: No acute intracranial abnormality. EKG The study demonstrates normal sinus rhythm at 84bpm, normal axis and intervals, normal waveforms with no acute evidence of ischemia Impression Assessment and Plan 87yo female with history of DVT, Hypertension, frequent falls presenting with 2 days of progressive shortness of breath and wheeze 1. Shortness of breath with hypoxia - patient hypoxic on arrival, 81% on RA, improved with supplemental O2. Chemistry with elevated HCO3 and VBG with CO2 of 64, normal pH suggesting possible chronic CO2 retention. No diagnosis of COPD. No tobacco history. -Admit to telemetry -DuoNeb q 4 hours scheduled -Xopenex q 4 hours PRN - patient markedly tachycardic after DuoNeb -Solumedrol 40mg IV q 8 hours -Incentive spirometry -Continue supplemental O2, goal SaO2 > 92% -Continue Symbicort 2. Falls - patient with history of the same. No concerning symptoms preceding or following the falls. -PT/OT evaluation for gait instability. Patient with walker and cane at home -Fall precautions -X-ray sacrum and coccyx -Consider obtaining echocardiogram 3. HTN - mildly hypertensive at present 154/74. -Continue Amlodipine, Lopressor and Maxzide -Check orthostatic VS x 1 4. Hyperlipidemia - chronic -Continue Lipitor 20mg po daily 5. GERD - chronic -Continue Protonix 40mg po daily 6. Anxiety - chronic -Continue Lexapro 10mg po daily 7. F/E/N - Heplock. Monitor electrolytes and replete as needed. Continue BID Magnesium oxide at home dosage. AHA diet as tolerated with aspiration precautions given history of choking on food. 8. Ppx - Lovenox for DVT prophylaxis 9. Code - full per discussion with patient 10. Dispo - admit to telemetry Resuscitation Status Full VTE Prophylaxis Will order VTE Prophylaxis: Yes
[2017-09-28] MEDS ORDERED: ONDANSETRON INJ 2 MG/ML 2 ML VIAL IV PRN (20:00)
[2017-09-28] MEDS ORDERED: LEVALBUTEROL 0.63MG/3 ML NEB INH PRN (20:00)
[2017-09-28 20:12] VITALS: Ht 167.6 cm; Wt 73.1 kg
[2017-09-28 20:35] LABS: PHOSPHORUS 2.4 mg/dl (2.5-4.9)
[2017-09-28 21:15] VITALS: BP 156/74; PULSE 128; TEMP 37.2; O2SAT 92
--- NOTE | 2017-09-28 21:17 | DIAGNOSTIC IMAGING REPORT ---
SACRUM COCCYX MIN 2 VIEWS CLINICAL HISTORY: Fall. Sacrum/coccyx pain. COMPARISON STUDY: CT of the abdomen and pelvis December 31, 2011. FINDINGS: AP exam is compromised by contrast within the bladder from recent contrast-enhanced CT. Sacroiliac joints appear intact. Lateral view demonstrates apparent cortical irregularity at the sacrococcygeal junction. IMPRESSION: Apparent cortical irregularity at the sacrococcygeal junction. This is probably artifactual however an acute minimally displaced fracture could have this appearance. Electronically signed by: Tito Plata M.D. 09/28/2017 9:16 PM Dictated Date/Time: 09/28/2017 9:13 PM
[2017-09-28] MEDS: ALBUT/IPRATROP 3MG/0.5MG NEB 3 ML VIAL INH SCH ×2 (21:42→23:40)
[2017-09-28] MEDS ORDERED: MECLIZINE HCL 25 MG TAB PO PRN (22:45)
[2017-09-28 23:22] VITALS: BP 127/67; PULSE 110; TEMP 36.9; O2SAT 91
[2017-09-28 23:40] VITALS: PULSE 110; O2SAT 98
[2017-09-28] MEDS: LORAZEPAM 1 MG TAB PO PRN (23:49)
[2017-09-28] MEDS: BUDESONIDE/FORMOTEROL FUMARATE 80/4.5 60 PUFFS/INHALER INH SCH (23:53)
[2017-09-28] MEDS: GABAPENTIN 100 MG CAP PO SCH (23:55)
[2017-09-28] MEDS: METOPROLOL TARTRATE 50 MG TAB PO SCH (23:56)
[2017-09-28] MEDS: AMLODIPINE BESYLATE 5 MG TAB PO SCH (23:59)
[2017-09-28] MEDS: MAGNESIUM OXIDE 400 MG TAB PO SCH (23:59)
[2017-09-29] VITALS (10 sets, daily range): BP systolic 123–138; BP diastolic 64–76; PULSE 58–83; TEMP 36.7–37.8; O2SAT 92–96
[2017-09-29] MEDS: METHYLPREDNISOLONE IV 40 MG in SYRINGE 0 ML IV SCH ×3 (02:25→18:08)
[2017-09-29] MEDS: ALBUT/IPRATROP 3MG/0.5MG NEB 3 ML VIAL INH SCH ×2 (03:37→07:14)
[2017-09-29 05:49] LABS: HEMATOCRIT 33.6 % (37-47); HEMOGLOBIN 11.2 g/dL (12.0-16.0); IG# 0.01 K/uL (0.00-0.02); LYMPH % 3.7 %; LYMPH ABS # 0.17 K/uL (1.2-3.4); MEAN CELL VOLUME 91.3 fL (80-100); MEAN CORPUSCULAR HEMOGLOBIN 30.4 pg (25-34); MEAN CORPUSCULAR HGB CONC 33.3 g/dl (32-36); MEAN PLATELET VOLUME 9.3 fL (7.4-10.4); MONO % 1.1 %; MONO ABS # 0.05 K/uL (0.11-0.59); NEUT ABS # 4.31 K/uL (1.4-6.5); PLATELET COUNT 145 K/uL (130-400); RED CELL DISTRIBUTION WIDTH CV 12.4 % (11.5-14.5); RED CELL DISTRIBUTION WIDTH SD 41.7 fL (36.4-46.3); WHITE BLOOD COUNT 4.54 K/uL (4.8-10.8)
[2017-09-29 06:22] LABS: CALCIUM 8.8 mg/dl (8.5-10.1); CREATININE 0.96 mg/dl (0.60-1.20)
[2017-09-29] MEDS ORDERED: PERFLUTREN LIPID MICROSPHERE (DEFINITY) IV ONE (06:49)
--- NOTE | 2017-09-29 06:57 | Family Medicine Progress Note ---
Progress Note Date of Service Sep 29, 2017. Subjective Pt evaluation today including: conversation w/ patient, conversation w/ family , physical exam, chart review, lab review, review of inpatient medication list Pain: Mild back pain reported, over tailbone PO Intake: Tolerating PO intake Voiding: no voiding problems Ms. Preciado reports she feels better today. She states her breathing has improved. She does note that she has a history of sleep apnea, and previously used to wear a CPAP. She underwent surgery on her nose, and since then, has been unable to use her CPAP. She was subsequently switched over to oxygen via nasal cannula to use at night. She also reports she wheezes after climbing stairs or walking a long distance, and had been prescribed a symbicort inhaler by her PCP to use for this. She denies a formal diagnosis of COPD or asthma, and states she has never seen a leasing agent. Constitutional: No fever, No chills Respiratory: + cough, + wheezing (improved), No dyspnea at rest Cardiovascular: No chest pain Abdomen: No pain, No nausea, No vomiting All Other Systems: Reviewed and Negative Medications Current Inpatient Medications Medications (Trade) Dose Ordered Sig/Adriana Route Start Time Stop Time Status Last Admin Dose Admin Ioversol (Optiray 320) 111 ml UD PRN IV 09/28/17 17:45 10/02/17 17:44 Enoxaparin Sodium (Lovenox Inj) 40 mg Q24H SC 09/28/17 22:00 10/28/17 19:59 09/29/17 00:00 40 MG Acetaminophen (Tylenol Tab) 650 mg Q4H PRN PO 09/28/17 20:00 10/28/17 19:59 Ondansetron HCl (Zofran Inj) 4 mg Q6H PRN IV 09/28/17 20:00 10/28/17 19:59 Methylprednisolone Sodium Succinate 40 mg/Syringe 0.64 ml @ 1.5 mls/min Q8H IV 09/29/17 02:00 09/29/17 23:59 09/29/17 10:47 1.5 MLS/MIN Amlodipine Besylate (Norvasc Tab) 2.5 mg BID PO 09/28/17 21:00 10/28/17 20:59 09/29/17 07:57 2.5 MG Aspirin (Ecotrin Tab) 81 mg DAILY PO 09/29/17 09:00 10/29/17 08:59 09/29/17 07:57 81 MG Atorvastatin Calcium (Lipitor Tab) 20 mg DAILY PO 09/29/17 09:00 10/29/17 08:59 09/29/17 07:57 20 MG Budesonide/ Formoterol Fumarate (Symbicort 80/ 4.5 Inh) 2 puffs BID INH 09/28/17 21:00 10/28/17 20:59 09/29/17 07:57 2 PUFFS Escitalopram Oxalate (Lexapro Tab) 10 mg DAILY PO 09/29/17 09:00 10/29/17 08:59 09/29/17 07:57 10 MG Gabapentin (Neurontin Cap) 100 mg QAM PO 09/29/17 09:00 10/29/17 08:59 09/29/17 07:57 100 MG Gabapentin (Neurontin Cap) 200 mg QPM PO 09/28/17 21:00 10/28/17 20:59 09/28/17 23:55 200 MG Metoprolol Tartrate (Lopressor Tab) 50 mg BID PO 09/28/17 21:00 10/28/17 20:59 09/29/17 07:56 50 MG Pantoprazole Sodium (Protonix Tab) 40 mg DAILY PO 09/29/17 09:00 10/29/17 08:59 09/29/17 07:57 40 MG Triamterene/HCTZ (Maxzide 37.5/25 Tab) 1 tab DAILY PO 09/29/17 09:00 10/29/17 08:59 09/29/17 07:56 1 TAB Magnesium Oxide (Mag-Ox Tab) 400 mg BID PO 09/28/17 21:00 10/28/17 20:59 09/29/17 07:56 400 MG Ceftriaxone Sodium 1 gm/ Dextrose 50 ml @ 100 mls/hr Q24H IV 09/29/17 18:00 10/03/17 17:59 Lorazepam (Ativan Tab) 1 mg BID PRN PO 09/28/17 22:45 10/28/17 22:44 09/28/17 23:49 1 MG Meclizine HCl (Antivert Tab) 25 mg TID PRN PO 09/28/17 22:45 10/28/17 22:44 Levalbuterol (Xopenex 0.63 Mg/ 3 Ml Neb) 0.63 mg Q6R INH 09/29/17 15:00 10/29/17 14:59 Prednisone (PredniSONE TAB) 40 mg DAILY PO 09/30/17 09:00 10/30/17 08:59 Objective Vital Signs Date Time Temp Pulse Resp B/P (MAP) Pulse Ox O2 Delivery O2 Flow Rate FiO2 09/29/17 11:54 37.1 66 20 130/64 (86) 92 Nasal Cannula 1.0 09/29/17 11:16 75 16 92 Nasal Cannula 1.0 09/29/17 08:50 96 09/29/17 08:00 Nasal Cannula 2.0 09/29/17 07:15 36.7 68 18 123/69 (87) 93 Nasal Cannula 2.0 09/29/17 07:15 58 16 92 Nasal Cannula 2.0 09/29/17 07:10 36.7 58 18 123/69 (87) 93 Nasal Cannula 2.0 09/29/17 03:52 36.8 66 17 131/76 (94) 94 Nasal Cannula 3.0 09/29/17 00:00 Nasal Cannula 2.0 09/28/17 23:40 110 18 98 Nasal Cannula 2.0 09/28/17 23:22 36.9 110 21 127/67 (87) 91 Nasal Cannula 3.0 09/28/17 21:15 Nasal Cannula 2.0 09/28/17 21:15 37.2 128 18 156/74 (101) 92 Nasal Cannula 2.0 09/28/17 20:12 Nasal Cannula 2.0 09/28/17 19:25 122 22 117/80 87 Room Air 09/28/17 17:37 83 19 97 Nasal Cannula 2.0 09/28/17 17:33 90 23 154/74 96 Nasal Cannula 2.0 09/28/17 16:13 98 Nasal Cannula 2.0 09/28/17 16:13 98 Nasal Cannula 2.0 09/28/17 16:06 85 Room Air 09/28/17 15:46 37.9 92 16 157/73 81 Room Air Physical Exam General Appearance: WD/WN, no apparent distress Respiratory/Chest: lungs clear, normal breath sounds, no respiratory distress, no accessory muscle use, + wheezing (soft wheezing bilaterally) Cardiovascular: regular rate, rhythm, no edema, no murmur Abdomen: non tender, soft Extremities: no pedal edema, no calf tenderness Neurologic/Psychiatric: alert, normal mood/affect Laboratory Results Last 24 Hours Test 09/28/17 16:32 09/28/17 17:30 09/28/17 18:24 09/29/17 05:40 White Blood Count 6.73 K/uL 4.54 K/uL Red Blood Count 4.00 M/uL 3.68 M/uL Hemoglobin 12.2 g/dL 11.2 g/dL Hematocrit 37.5 % 33.6 % Mean Corpuscular Volume 93.8 fL 91.3 fL Mean Corpuscular Hemoglobin 30.5 pg 30.4 pg Mean Corpuscular Hemoglobin Concent 32.5 g/dl 33.3 g/dl Platelet Count 164 K/uL 145 K/uL Mean Platelet Volume 9.6 fL 9.3 fL Neutrophils (%) (Auto) 77.5 % 95.0 % Lymphocytes (%) (Auto) 8.3 % 3.7 % Monocytes (%) (Auto) 9.2 % 1.1 % Eosinophils (%) (Auto) 4.3 % 0.0 % Basophils (%) (Auto) 0.4 % 0.0 % Neutrophils # (Auto) 5.21 K/uL 4.31 K/uL Lymphocytes # (Auto) 0.56 K/uL 0.17 K/uL Monocytes # (Auto) 0.62 K/uL 0.05 K/uL Eosinophils # (Auto) 0.29 K/uL 0.00 K/uL Basophils # (Auto) 0.03 K/uL 0.00 K/uL RDW Standard Deviation 43.4 fL 41.7 fL RDW Coefficient of Variation 12.7 % 12.4 % Immature Granulocyte % (Auto) 0.3 % 0.2 % Immature Granulocyte # (Auto) 0.02 K/uL 0.01 K/uL Prothrombin Time 10.6 SECONDS Prothromb Time International Ratio 1.0 Activated Partial Thromboplast Time 27.7 SECONDS Partial Thromboplastin Ratio 1.1 Sodium Level 132 mmol/L 131 mmol/L Potassium Level 3.7 mmol/L 4.0 mmol/L Chloride Level 92 mmol/L 94 mmol/L Carbon Dioxide Level 34 mmol/L 31 mmol/L Anion Gap 6.0 mmol/L 6.0 mmol/L Blood Urea Nitrogen 13 mg/dl 16 mg/dl Creatinine 1.04 mg/dl 0.96 mg/dl Est Creatinine Clear Calc Drug Dose 39.5 ml/min 42.3 ml/min Estimated GFR () 55.9 61.6 Estimated GFR (Non- 48.3 53.2 BUN/Creatinine Ratio 12.9 16.2 Random Glucose 137 mg/dl 153 mg/dl Calcium Level 8.9 mg/dl 8.8 mg/dl Phosphorus Level 2.4 mg/dl Magnesium Level 1.9 mg/dl Total Bilirubin 0.9 mg/dl Aspartate Amino Transf (AST/SGOT) 15 U/L Alanine Aminotransferase (ALT/SGPT) 16 U/L Alkaline Phosphatase 149 U/L Troponin I < 0.015 ng/ml Pro-B-Type Natriuretic Peptide 410 pg/ml Total Protein 7.8 gm/dl Albumin 3.7 gm/dl Globulin 4.1 gm/dl Albumin/Globulin Ratio 0.9 Venous Blood pH 7.36 Venous Blood Partial Pressure CO2 64 mmHg Venous Blood Partial Pressure O2 27 mmHg Venous Blood HCO3 35 mmol/L Venous Blood Oxygen Saturation < 60.0 % Venous Blood Base Excess 8.0 mEq/L Urine Color YELLOW Urine Appearance CLOUDY Urine pH 6.5 Urine Specific [place] 1.013 Urine Protein NEG Urine Glucose (UA) NEG Urine Ketones NEG Urine Occult Blood NEG Urine Nitrite POS Urine Bilirubin NEG Urine Urobilinogen POS Urine Leukocyte Esterase SMALL Urine WBC (Auto) 10-30 /hpf Urine RBC (Auto) 0-4 /hpf Urine Hyaline Casts (Auto) 1-5 /lpf Urine Epithelial Cells (Auto) >30 /lpf Urine Bacteria (Auto) 4+ Urine Renal Epithelial Cells 0-5 /lpf Assessment and Plan Ms. Preciado is a 87 year old female with history of DVT, Hypertension, frequent falls presenting with 2 days of progressive shortness of breath and wheeze Acute on Chronic Respiratory Failure with Hypoxia - patient hypoxic on arrival, 81% on RA, improved with supplemental O2 - CTA and CXR negative - ECHO normal w/EF of 65-70% and no RWMA. - labs show elevated HCO3 and VBG with CO2 of 64, suggesting possible chronic CO2 retention. No diagnosis of COPD. No tobacco history. - thank you to pulmonology for consult -> PFTs done -> show reduced FEV1/FVC ratio of 55% w/minimal change with bronchodilator -> correlates w/moderate obstructive lung disease -> add spiriva to inhaler regimen -> taper solumedrol to 40mg prednisone tomorrow -> continue xopenex nebs q6h -Continue supplemental O2, goal SaO2 > 92% - pt does have a history of mild JUAN - unable to tolerate CPAP due to recent nasal surgery. Continue w/nocturnal O2 - although patient will likely require 24h O2 - will obtain 2 step prior to d/c -Continue home Symbicort UTI - pt had elevated temp of 37.9 on admission, has remained afebrile since - being treated w/daily Rocephin - bcx pending, urine cx positive for gram negative bacilli - awaiting sensitivities, and then will narrow down abx and switch to PO Falls - patient with history of falls, generally falls backwards w/out prodromal symptoms - CT brain and c-spine negative - PT/OT recommend home PT once discharged. Patient with walker and cane at home - X-ray sacrum and coccyx showed possible acute minimally displaced fracture - pt not complaining of pain -> no need for ortho consult/surgery. continue w/ pain management if needed HTN - mildly hypertensive at admission 154/74 -> improved to WNL - Continue home Amlodipine, Lopressor and Maxzide Hyperlipidemia - chronic -Continue Lipitor 20mg po daily GERD - chronic -Continue Protonix 40mg po daily Anxiety - chronic -Continue Lexapro 10mg po daily DVT Prophylaxis: - 40mg Lovenox daily for DVT prophylaxis Code - Full Disposition - remains on telemetry Resident Physician Supervision Note: I was present with the resident physician during the history and exam. I discussed the case with the resident and agree with the findings and plan as documented in the note. Upon exam the patient has no dyspnea at rest. Off of oxygen this morning she is a pulse oximetry reading of 81%. Upon examination, her lungs are essentially clear; with some wheezing reported upon admission, I do not appreciate any wheezing at present. The patient has not previously been evaluated by pulmonology. Her hypoxia seems somewhat disproportionate to her exam. It sounds as if she was on CPAP at one time but this was discontinued when she had nasal surgery for a skin cancer. She is now on nocturnal oxygen with a recent sleep study completed. Based on her presenting labs I suspect there is initially to this, thus her presentation is most consistent with acute on chronic respiratory failure with hypoxia. Documented By: Alexander Acosta Resident Tracking Resident Involvement: Resident Care Provided Care Provided: Adult Hospital Medicine
[2017-09-29] MEDS: METOPROLOL TARTRATE 50 MG TAB PO SCH ×2 (07:56→21:06)
[2017-09-29] MEDS: MAGNESIUM OXIDE 400 MG TAB PO SCH ×2 (07:56→21:06)
[2017-09-29] MEDS: TRIAMTERENE/HCTZ 37.5/25MG TAB PO SCH (07:56)
[2017-09-29] MEDS: ASPIRIN 81 MG ECTAB PO SCH (07:57)
[2017-09-29] MEDS: ATORVASTATIN 20 MG TAB PO SCH (07:57)
[2017-09-29] MEDS: ESCITALOPRAM OXALATE 10 MG TAB PO SCH (07:57)
[2017-09-29] MEDS: BUDESONIDE/FORMOTEROL FUMARATE 80/4.5 60 PUFFS/INHALER INH SCH ×2 (07:57→21:05)
[2017-09-29] MEDS: PANTOprazole SOD 40 MG TAB PO SCH (07:57)
[2017-09-29] MEDS: GABAPENTIN 100 MG CAP PO SCH ×2 (07:57→21:06)
[2017-09-29] MEDS: AMLODIPINE BESYLATE 5 MG TAB PO SCH ×2 (07:57→21:06)
[2017-09-29] MEDS ORDERED: LEVALBUTEROL 0.63MG/3 ML NEB INH SCH (08:00)
--- NOTE | 2017-09-29 08:25 | Clinical Documentation Query ---
CLINICAL DOCUMENTATION QUERY 87 yo female admitted with SOB and hypoxia. Patient wears chronic O2 at home. Patient presented with SOB, wheezing, SPO2 of 81%, and treated with O2, Duonebs, and Solumedrol. In your clinical opinion is this patient being managed for: ( X ) Acute and chronic respiratory failure with hypoxia We will document in today's progress note. I have discussed with resident on the case; I will also place this in my attestation of the resident's note. Please note that the resident may have an incomplete note in the chart; it is not final until I add my attestation. Please page me today if you have any questions. ( ) Not Agree ( ) Other explanation of clinical findings (No explanation is considered a No Response) ( ) Unable to determine ( ) Need to Discuss (Phone CDS or qliq) (No discussion is considered a No Response) The medical record reflects the following clinical findings, treatment, and risk factors. Clinical Indicators: As above Treatment: As above, telemetry, CT chest, venous blood gas Risk Factors: Age, chronic O2 with hypoxia Please clarify and document your clinical opinion in the progress notes and discharge summary. Terms such as "probable", "suspected", "likely", "questionable", "possible", or "still to be ruled out" are acceptable. IF IN AGREEMENT, YOU MUST DOCUMENT ABOVE DIAGNOSTIC STATEMENT IN DAILY PROGRESS NOTES AND DISCHARGE SUMMARY. This document is not part of the patient's record. Thank You, Shawna Aponte RN, MSN [phone]
--- NOTE | 2017-09-29 10:10 | ECHOCARDIOGRAM REPORT ---
*NOTICE TO RECEIVING CONSTITUTION [employer]Y AGENCY This information is strictly Confidential and protected under [place] law. [place] law prohibits you from making any further disclosure of this information unless further disclosure is expressly permitted by the written consent of the person to whom it pertains or is authorized by law. A general authorization for the release of medical or other information is not sufficient for this purpose. Hospital accepts no responsibility if the information is made available to any other person, INCLUDING THE PATIENT. Interpretation Summary * Name: SUDHIR ANDERSON Study Date: 09/29/2017 06:24 AM BP: 131/76 mmHg * Patient Location: C.2T\S\E220\S\1 HR: 66 * : 1930 (M/d/yyyy) Gender: Female Height: 66 in * Age: 87 yrs Ethnicity: [place] Weight: 165 lb * Ordering Physician: Gabriella Antunez * Performed By: Trinidad Boudreaux RDCS * * Reason For Study: SYNCOPE * BSA: 1.8 m2 * -- Conclusions -- * 1. Normal LV size, borderline concentric LVH. * 2. LVEF 65-70%. No regional wall motion abnormalities. * 3. Normal RV size and function. * 4. Mild mitral regurgitation. * 5. Normal estimated CVP. Procedure Details * A complete two-dimensional transthoracic echocardiogram was performed (2D, M-mode, Doppler and color flow Doppler). * A contrast injection of Definity was performed to improve assessment of LV function. * Contrast was injected into an intravenous site in the left arm. * One vial of Definity ultrasound contrast was diluted in normal saline to a total volume of 10 ml. A total of '3' ml of solution was administered during imaging. * Lot # [id number] of Definity utilized for procedure. * Expiration date 09/01. Left Ventricle * The left ventricle is grossly normal size. * There is borderline concentric left ventricular hypertrophy. * Ejection Fraction = 65-70%. * No regional wall motion abnormalities noted. Right Ventricle * The right ventricle is grossly normal size. * The right ventricular systolic function is normal as assessed by tricuspid annular plane systolic excursion (TAPSE) (normal >1.5 cm). Atria * The left atrial size is normal. * Right atrial size is normal. * No ASD detected; PFO is not assessed. Mitral Valve * The mitral valve is grossly normal. * There is no mitral valve stenosis. * There is mild mitral regurgitation. Tricuspid Valve * There is trace tricuspid regurgitation. Aortic Valve * The aortic valve opens well. * The aortic valve is trileaflet. * No hemodynamically significant valvular aortic stenosis. * There is no significant aortic regurgitation. Pulmonic Valve * The pulmonary valve is inadequately visualized, but the Doppler data is adequate for interpretation. * Pulmonic stenosis is absent. * Trace pulmonic valvular regurgitation. Great Vessels * The aortic root and proximal ascending aorta are normal sized. Pericardium/Pleural * There is no pericardial effusion. Great Vessels * Normal inferior vena cava size and collapsability with sniff indicates a normal right atrial pressure of 3 mmHg MMode 2D Measurements and Calculations IVSd 1.2 cm IVSs 1.7 cm LVIDd 3.7 cm LVIDs 2.2 cm LVPWd 1.2 cm LVPWs 1.6 cm IVS/LVPW 1.1 FS 40.1 % EDV(Teich) 57.4 ml ESV(Teich) 16.3 ml EF(Teich) 71.6 % EDV(cubed) 49.9 ml ESV(cubed) 10.7 ml EF(cubed) 78.5 % % IVS thick 37.5 % % LVPW thick 39.1 % LV mass(C)d 145.8 grams LV mass(C)dI 79.1 grams/m\S\2 LV mass(C)s 131.4 grams LV mass(C)sI 71.3 grams/m\S\2 SV(Teich) 41.1 ml SI(Teich) 22.3 ml/m\S\2 SV(cubed) 39.2 ml SI(cubed) 21.3 ml/m\S\2 ACS 1.4 cm LA dimension 3.0 cm asc Aorta Diam 3.2 cm LVOT diam 1.8 cm LVOT area 2.5 cm\S\2 LVAd ap4 28.5 cm\S\2 LVLd ap4 7.4 cm EDV(MOD-sp4) 92.1 ml EDV(sp4-el) 92.6 ml LVAs ap4 13.2 cm\S\2 LVLs ap4 6.1 cm ESV(MOD-sp4) 23.9 ml ESV(sp4-el) 24.5 ml EF(MOD-sp4) 74.0 % EF(sp4-el) 73.5 % LVAd ap2 27.2 cm\S\2 LVLd ap2 7.6 cm EDV(MOD-sp2) 79.5 ml EDV(sp2-el) 82.8 ml LVAs ap2 11.9 cm\S\2 LVLs ap2 5.9 cm ESV(MOD-sp2) 20.1 ml ESV(sp2-el) 20.2 ml EF(MOD-sp2) 74.8 % EF(sp2-el) 75.6 % LVLd %diff 2.2 % EDV(MOD-bp) 87.2 ml LVLs %diff -2.69 % ESV(MOD-bp) 21.6 ml EF(MOD-bp) 75.2 % SV(MOD-sp4) 68.2 ml SI(MOD-sp4) 37.0 ml/m\S\2 SV(MOD-sp2) 59.4 ml SI(MOD-sp2) 32.2 ml/m\S\2 SV(MOD-bp) 65.6 ml SI(MOD-bp) 35.6 ml/m\S\2 SV(sp4-el) 68.1 ml SI(sp4-el) 36.9 ml/m\S\2 SV(sp2-el) 62.5 ml SI(sp2-el) 33.9 ml/m\S\2 Doppler Measurements and Calculations MV E max artie 75.0 cm/sec MV A max artie 117.6 cm/sec MV E/A 0.64 MV dec time 0.22 sec Ao V2 max 123.4 cm/sec Ao max PG 6.1 mmHg Ao max PG (full) 0.35 mmHg SHERRY(V,A) 2.4 cm\S\2 SHERRY(V,D) 2.4 cm\S\2 LV V1 max PG 5.7 mmHg LV V1 max 119.8 cm/sec PA V2 max 69.6 cm/sec PA max PG 1.9 mmHg PI end-d artie 103.5 cm/sec TR max artie 340.8 cm/sec
[2017-09-29] MEDS: LEVALBUTEROL 0.63MG/3 ML NEB INH SCH ×2 (14:04→19:47)
--- NOTE | 2017-09-29 15:46 | PULMONARY CONSULTATION ---
DATE OF CONSULTATION: 09/29/2017 TIME: 12:30 p.m. HISTORY OF PRESENT ILLNESS: The patient was seen in room 220, bed 1. She is a very pleasant 87-year-old female who is being seen because of hypoxia and shortness of breath. The patient suffered a fall at home about 3 nights ago. It occurred about 3:30 a.m. She was getting up to go to the bathroom. She states she fell backwards. She denies loss of consciousness. She could not get up. Her daughter lives in the same household. The patient was yelling for her, but she could not get help for about 1 hour. She was feeling weak. Ultimately, her daughter was able to get her up and get her back in bed. They did not go to the doctor that day. Yesterday, they went to Dr. Borja's office. She was found to have hypoxia. Her saturations in their office were 85-86% on room air. It was advised that she go to the Emergency Room. In the ER, her saturations were 81%. The patient does carry a history of sleep apnea which was diagnosed back in approximately 2005. She wore CPAP for many years, although she states she did not feel any differently. She stopped wearing CPAP, she states because she had a skin cancer on her nose. When this was removed, her nose was very sore and she could not wear the CPAP mask for a long time, so she ultimately stopped wearing it. She then had a sleep study done 05/23/2017 that showed mild apnea with an apnea hypopnea index of 6.6. Her oxygen levels were low. She then had an overnight pulse ox done on 06/27/2017 that showed a low saturation of 77% and she had 312 minutes with saturations less than 88%. She was then prescribed nocturnal oxygen therapy. She has had wheezing for a few years. She was given a ProAir inhaler about 3 years ago and she states that it definitely helps. Earlier this year, she was prescribed Symbicort which she states she never took it regularly. She actually does not remember this being prescribed, but her doctors did prescribe it yesterday when they saw her. She did have a prescription, however, from a few months ago, but she cannot remember. The patient notices shortness of breath and wheezing with exertion. She definitely would be short of breath going up one flight of steps. She lives in a home with an upstairs and downstairs and she tends to come down once in the morning and goes back up once at night. She feels too short of breath to do any housework. Her daughter does that. She states when she goes to stores, she now rides a motorized cart rather than walking. She states she was getting short of breath walking even when she would be pushing a cart. She has just a slight cough. It is generally dry. She has no chest pains. She denies chills, fevers, or sweats. She has never coughed any blood. The patient has never smoked. She has not had any jobs where she worked with any significant chemicals. PAST PULMONARY HISTORY: She had tuberculosis when she was about 20 years old. She was in a sanitarium for 6 months. She did receive treatment with streptomycin. She also had pneumothorax treatment to the left lung. The patient has sleep apnea as noted. There has been no definite diagnosis of asthma or COPD. PAST MEDICAL HISTORY: 1. DVT in the leg 15 or 20 years ago. She does not recall how long she took blood thinners. 2. Hypertension. 3. Hearing loss. 4. Reflux. 5. Childbirth x4. 6. Skin cancer. PAST SURGICAL HISTORY: 1. Appendectomy. 2. Cataract surgery. 3. D and C. 4. Nasal surgery for skin cancer. ALLERGIES: LISTED ALLERGIES TO LEVOFLOXACIN, DOXYCYCLINE, SULFA AND CODEINE. MOST OF THESE WERE RELATED TO GI INTOLERANCE. The exception to that was the levofloxacin and she did not remember what kind of reaction she had. SOCIAL HISTORY: The patient is a . She never smoked and does not drink alcohol. REVIEW OF SYSTEMS: The patient has occasional dizziness. She has chronic headaches. These occur either morning or afternoon. Energy level is poor. She thinks she may have lost some weight based upon the way her clothes feel. Her appetite is mildly decreased. She has occasional diarrhea. She has urinary incontinence. The remainder of the review of systems is negative. MEDICATIONS AT HOME: 1. Amlodipine 2.5 mg b.i.d. 2. Aspirin 81 mg daily. 3. Atorvastatin 20 mg daily. 4. Symbicort 80/4.5 two puffs b.i.d. - not taking regularly. 5. B12 once monthly. 6. Escitalopram 10 mg daily. 7. Gabapentin 100 mg in the morning and 200 mg at night. 8. Lorazepam 1 mg b.i.d. p.r.n. 9. Magnesium 400 mg b.i.d. 10. Meclizine 25 mg t.i.d. p.r.n. dizziness or vertigo. 11. Metoprolol 50 mg b.i.d. 12. Pantoprazole 40 mg daily. 13. Aristocort cream. 14. Dyazide 37.5/25 one daily. 15. ProAir p.r.n. PHYSICAL EXAMINATION: GENERAL: The patient is a very pleasant 87-year-old female who was cooperative, alert and oriented. She was in no distress at rest. VITAL SIGNS: Temperature is 37.1. Temperature upon first admission was 37.9. Cardiac rate was 66 per minute. Rhythm was regular. Blood pressure 130/64. HEENT: Pupils were reactive. The implants were noted bilaterally. Nares were clear. Mouth exam showed a denture on top. Pharynx was otherwise negative. NECK: Palpation of the neck reveals no lymph nodes. LUNGS: Auscultation of the lung villalba revealed them to be clear. No wheezes, rales, or rhonchi were heard. Saturation was 92% on 1 liter. Respiratory rate was 20. ABDOMEN: Inspection of the abdomen reveals significant ecchymosis in the right lower abdominal region. I thought this perhaps was from injections she is receiving. She denies this, however. She insists that came from her fall. This does not make sense, however, since she by history fell backwards. Indeed, there was an area of ecchymosis on the left posterior chest. EXTREMITIES: Showed no cyanosis, clubbing or edema. LABORATORY DATA: The patient had a CT angio of the chest. The lungs were clear. There was no evidence of pulmonary embolic disease. Plain CT of the chest suggested mild dilatation of the central pulmonary arteries. There was biapical scarring noted. X-ray of the sacrum and coccyx showed a cortical irregularity at the sacrococcygeal junction. This was felt to be artifactual, but an acute minimally displaced fracture could not be excluded. CT of the brain was negative. White count is 4.54. Hemoglobin 11.2. Platelets 145,000. Coags were normal. Urinalysis shows 4+ urine bacteria with 10-30 WBCs and positive urobilinogen and nitrite. Urine leukocyte esterase was small. Venous blood gas showed pH of 7.36, pCO2 of 64 and a pO2 of 27. Electrolytes yesterday showed sodium 132, potassium 3.7, chloride 92, bicarbonate 34. BUN was 13 with a creatinine of 1.04. Phosphorus was low at 2.4. Calcium was 8.9. Albumin was 3.7. Alkaline phosphatase was elevated at 149. Troponin was negative. ProBNP was normal at 410. IMPRESSION AND PLAN: 1. Hypoxia. 2. History of shortness of breath and wheezing. 3. Obstructive sleep apnea by history. 4. Old tuberculosis. 5. Probable urinary tract infection. 6. Recurring falls. The patient has a history of about 3 years of wheezing. It is unclear if this is pulmonary in origin or it could be cardiac in origin. According to the patient, the inhaler has definitely helped. She did have an echocardiogram done that showed good cardiac function with an ejection fraction of 65-70%. There was mild mitral regurgitation. Her hypoxia at night could readily be explained by the sleep apnea. That would be less likely as a reason to be causing daytime hypoxia. She does feel better with her treatment which does include antibiotics in the form of ceftriaxone. She is on methylprednisolone 40 mg IV q. 8. She is on levalbuterol by nebulizer q. 4 hours. My suggestion would be to change the steroid to oral prednisone. She does have a history of TB and we would prefer to limit the steroid exposure as much as feasible. I believe the nebulizer treatments could be given every 6 hours instead of every 4. We will try to obtain pulmonary functions while she was here to see if she shows evidence of obstructive lung disease. We will make further suggestions as her course plays out. Thank you for asking me to assist in her care. NASEEM
[2017-09-29] MEDS ORDERED: CEFTRIAXONE SOD INJ 1 GM in DEXTROSE 5% ADD-VANTAGE 50ML 50 ML IV SCH (18:00)
[2017-09-29] MEDS: ACETAMINOPHEN 325 MG TAB PO PRN ×2 (18:20→23:37)
[2017-09-29] MEDS: ENOXAPARIN 40 MG/0.4 ML SYR SC SCH ×2 (21:07)
[2017-09-29] MEDS: LORAZEPAM 1 MG TAB PO PRN (21:11)
[2017-09-30] VITALS (7 sets, daily range): BP systolic 123–146; BP diastolic 67–74; PULSE 59–74; TEMP 36.4–37; O2SAT 92–97
[2017-09-30] MEDS: LEVALBUTEROL 0.63MG/3 ML NEB INH SCH ×2 (07:02→14:24)
[2017-09-30] MEDS: GABAPENTIN 100 MG CAP PO SCH (07:54)
[2017-09-30] MEDS: METOPROLOL TARTRATE 50 MG TAB PO SCH (07:54)
[2017-09-30] MEDS: ASPIRIN 81 MG ECTAB PO SCH (07:54)
[2017-09-30] MEDS: TRIAMTERENE/HCTZ 37.5/25MG TAB PO SCH (07:54)
[2017-09-30] MEDS: PANTOprazole SOD 40 MG TAB PO SCH (07:55)
[2017-09-30] MEDS: MAGNESIUM OXIDE 400 MG TAB PO SCH (07:55)
[2017-09-30] MEDS: ESCITALOPRAM OXALATE 10 MG TAB PO SCH (07:55)
[2017-09-30] MEDS: AMLODIPINE BESYLATE 5 MG TAB PO SCH (07:55)
[2017-09-30] MEDS: ATORVASTATIN 20 MG TAB PO SCH (07:55)
[2017-09-30] MEDS: BUDESONIDE/FORMOTEROL FUMARATE 80/4.5 60 PUFFS/INHALER INH SCH (07:56)
[2017-09-30 07:59] LABS: CREATININE 1.04 mg/dl (0.60-1.20); POTASSIUM 3.8 mmol/L (3.5-5.1)
[2017-09-30] MEDS ORDERED: TIOTROPIUM BROMIDE 5 PUFF/90 MCG INH INH SCH (09:00)
[2017-09-30] MEDS ORDERED: SODIUM CHLORIDE 0.9% 250ML 250 ML IV SCH (11:30)
--- NOTE | 2017-09-30 12:47 | PULMONARY FUNCTION TEST ---
Spirometry shows evidence of a moderate obstructive pattern. Repeat study done following bronchodilator showed no significant change in function. Flow volume loops were consistent with spirometric findings.
--- NOTE | 2017-09-30 14:33 | PULMONARY PROGRESS NOTE ---
DATE: 09/30/2017 TIME: 1:20 p.m. SUBJECTIVE: The patient states she feels reasonably well. She states her breathing is much better than when she came in, but it is overall about the same as yesterday. She still seems to be somewhat fatigued and lethargic. She did not have any acute symptoms overnight. OBJECTIVE: GENERAL: The patient was comfortable at rest. VITAL SIGNS: Temperature is 37 degrees. Her maximum temperature was 37.8, which was later in the day yesterday. Heart rate was 60 per minute. Rhythm was regular. Blood pressure 123/67. LUNGS: Auscultation of the lung villalba revealed decreased breath sounds. Respiratory rate was 18. Saturation on room air was 92%. EXTREMITIES: Showed no cyanosis, clubbing or edema. The patient had pulmonary function testing done yesterday. This revealed evidence of a moderate obstructive pattern. The FEV1/FVC ratio was 55%. There was no significant change following bronchodilators except for smaller airways. LABORATORY DATA: Electrolytes today show sodium 132, potassium 3.8, chloride 93, bicarbonate 33. BUN is 28 with a creatinine of 1.04. The BUN yesterday had been 16. IMPRESSIONS: 1. Chronic obstructive pulmonary disease with exacerbation. 2. Hypoxia. 3. Urinary tract infection. 4. Old tuberculosis. 5. Recurring falls. COMMENTS: The patient seems to be generally doing better. The degree of abnormality on her pulmonary functions was surprising considering the fact that she has been a nonsmoker. They were clearly abnormal, however. She would appear to require chronic bronchodilator therapy. She should continue the Symbicort as she has been, but 2 puffs b.i.d. on a regular basis. I would also start her on Spiriva. She should at least have a rescue inhaler or perhaps even a nebulizer. It would appear the patient will likely need portable oxygen as well as her oxygen she already has at night time. They are currently doing her 2 step and it appears to be abnormal. The patient has had some recurring falls. It is possible the recent fall was precipitated by the urinary tract infection even though she did not have many symptoms. The question of course becomes as the patient able to care for herself in her current situation. Her daughter does live with her, which certainly is beneficial. She does have steps; however and that potentially is a problem. Following discharge, would perhaps taper her steroids by 10 mg every 2 days or so. MTDD
[2017-09-30] MEDS ORDERED: NITR-5 PO ×2 (15:24→15:58)
[2017-09-30] MEDS ORDERED: SPRIN INH ×2 (15:24→15:58)
[2017-09-30] MEDS ORDERED: PRED10TA PO ×2 (15:27→15:58)
--- NOTE | 2017-09-30 15:32 | Discharge Instructions ---
Discharge Instructions Date of Service Sep 30, 2017. Admission Reason for Admission: Shortness Of Breath Discharge Discharge Diagnosis / Problem: Urinary Tract Infection and COPD exacerbation Discharge Goals Goal(s): Decrease discomfort, Improve function, Increase independence, Improve disease control Activity Recommendations Activity Limitations: resume your previous activity . Instructions / Follow-Up Instructions / Follow-Up You were seen at [facility] for a fall and shortness of breath. Below are the medical conditions that were treated during your stay: 1) Fall - you may have fractured your tailbone - but this is a minor fracture and does not require surgical treatment. Use your home pain medications as needed. It may also be helpful to get a donut to sit on if you will be sitting for long periods of time. We also checked a CT scan of your head, neck and chest , and this was normal. 2) Shortness of breath - you were seen by our lung doctor who ran some tests, which show you have obstructive lung disease, meaning you have difficulty moving air in and out of your lungs. We recommend you use another inhaler, spiriva, on top of your symbicort. We will also be sending you home with oxygen to use continuously. 3) UTI - your urine showed an infection. We will be treating this with an antibiotic called macrobid. Please take your first dose tomorrow and continue taking it twice a day until it is finished. If you experience any high fever, chills, worsening breathing, or chest pain, please seek medical attention. Otherwise, please follow up with your regular primary care doctor. Current Hospital Diet Patient's current hospital diet: AHA Diet (Heart Healthy) Discharge Diet Recommended Diet: AHA Diet (Heart Healthy) Pending Studies Studies pending at discharge: no Medical Emergencies . Who to Call and When: Medical Emergencies: If at any time you feel your situation is an emergency, please call 911 immediately. . Non-Emergent Contact Non-Emergency issues call your: Primary Care Provider . . "Provider Documentation" section prepared by Sharon Whitley. .
[2017-09-30] MEDS: ACETAMINOPHEN 325 MG TAB PO PRN (15:35)
--- NOTE | 2017-09-30 16:15 | Discharge Summary ---
Discharge Summary Date of Service Sep 30, 2017. Discharge Summary Admission Date: Sep 28, 2017 at 20:04 Discharge Date: Sep 30, 2017 Discharge Disposition: Home Principal Diagnosis: UTI, COPD exacerbation Problems/Secondary Diagnoses: 1) Frequent falls 2) Hypertension 3) Hyperlipidemia 4) GERD 5) Anxiety Immunizations: Have You Had Influenza Vaccine: Yes History of Tetanus Vaccine?: No History of Pneumococcal: Yes History of Hepatitis B Vaccine: No Procedures: CT brain Impression: No acute intracranial abnormality. CXR IMPRESSION: 1. No acute cardiopulmonary findings. 2. Apparent bibasilar opacities which likely reflect atelectasis or normal vessels. No lobar consolidation. CT C-spine IMPRESSION: No fractures within the cervical spine. Moderate degenerative disc change. CT Chest IMPRESSION: 1. No acute intrathoracic findings on unenhanced CT. 2. Mild dilatation of the central pulmonary arteries which raises the possibility of pulmonary arterial hypertension. 3. Biapical scarring. CTA IMPRESSION: No evidence for pulmonary embolus. The lungs are clear. Coccyx IMPRESSION: Apparent cortical irregularity at the sacrococcygeal junction. This is probably artifactual however an acute minimally displaced fracture could have this appearance. Consultations: Pulmonary Medication Reconciliation New Medications: Nitrofurantoin Monohyd Macrocr (Macrobid) 100 Mg Cap 100 MG PO BID for 5 Days, #10 CAP Prednisone Tab (Prednisone) 10 Mg Tab 10 MG PO UD for 7 Days, #16 TAB Take 4 tablets on 10/01 Then, take 3 tablets for 2 days, then 2 tablets for 2 days and then 1 tablet for 2 days and stop. Tiotropium [place] (Spiriva Handihaler) 5 Puff/90 Mcg Aerp 1 PUFF INH QAM for 30 Days, #1 INHALER 3 Refills Continued Medications: Amlodipine (Norvasc) 2.5 Mg Tab 2.5 MG PO BID, TAB Aspirin Enteric Coated (Ecotrin Or Generic) 81 Mg Tab 81 MG PO DAILY, TAB Atorvastatin (Lipitor) 20 Mg Tab 20 MG PO DAILY, TAB Budesonide/Formoterol Fumarate (Symbicort 80/4.5 Inhaler) Aero 2 PUFFS INH BID, INHALER Cyanocobalamin (Vitamin B-12) 1,000 Mcg Sub 1000 MCG IM MONTHLY Escitalopram Oxalate (Lexapro) 10 Mg Tab 10 MG PO DAILY, TAB Gabapentin (Neurontin) 100 Mg Cap 100 MG PO QAM, CAP Gabapentin (Neurontin) 100 Mg Cap 200 MG PO QPM, CAP Lorazepam (Ativan) 1 Mg Tab 1 MG PO BID PRN, TAB Magnesium Oxide (Mg Supplement (Magnesium Oxide) 400 Mg Tab 400 MG PO BID Meclizine Hcl (Meclizine Hcl) 25 Mg Tab 1 TAB PO TID PRN for Dizziness or Vertigo for 10 Days, #30 TAB Metoprolol Tartrate (Lopressor) (Lopressor) 50 Mg Tab 50 MG PO BID, 0 Refills Pantoprazole (Protonix) 40 Mg Tab 40 MG PO DAILY, #30 TAB Triamcinolone Acet (Aristocort 0.1%) 90 Appln/30 Gm Cr 1 APPL TOP TID PRN for BREAK OUTS Triamterene/Hctz (Triamterene/Hctz 37.5-25MG) 1 Tab Tab 1 TAB PO DAILY, TAB [Proair Hfa 108] () 2 PUFF INH Q4 PRN for SOB/Wheezing Discharge Exam Ms. Preciado reports she feels better today. She denies chest pain or shortness of breath. She states her breathing is improved from yesterday. Review of Systems: Constitutional: No fever, No chills Respiratory: No cough, No wheezing Cardiovascular: No chest pain Abdomen: No nausea, No vomiting Genitourinary - Female: No dysuria, No urinary frequency, No urinary urgency Physical Exam: General Appearance: WD/WN, no apparent distress Respiratory/Chest: lungs clear, normal breath sounds, no respiratory distress, no accessory muscle use Cardiovascular: regular rate, rhythm, no edema Abdomen / GI: non tender, soft Extremities: no pedal edema Hospital Course Ms. Preciado is a 87 year old female with history of DVT, Hypertension, frequent fall who presented with 2 days of progressive shortness of breath and wheeze, as well as a recent fall. Acute on Chronic Respiratory Failure with Hypoxia - patient hypoxic on arrival, 81% on RA, improved with supplemental O2 - CTA and CXR negative - ECHO normal w/EF of 65-70% and no RWMA. - labs show elevated HCO3 and VBG with CO2 of 64, suggesting possible chronic CO2 retention. - pulmonology consulted -> PFTs done -> show reduced FEV1/FVC ratio of 55% w/minimal change with bronchodilator -> correlates w/moderate obstructive lung disease. COPD -> interesting as she has never smoked, although her daughter states there are other family members who have COPD who are non-smokers, perhaps a genetic cause? -> add spiriva to inhaler regimen -> initially treated w/IV solumedrol - will d/c on a tapering dose of prednisone - on 2 step - pt did require 2L of oxygen while ambulating, will d/c home on 2L of O2 to be worn continuously - pt does have a history of mild JUAN - but unable to tolerate CPAP due to recent nasal surgery. Continue w/O2 via nasal cannula UTI - pt had a mildly elevated temp of 37.9 on admission, has remained afebrile since - treated initially w/Rocephin - urine cx grew pansensitive klebsiella -> treat w/macrobid - blood cx negative Falls - patient with history of falls, generally falls backwards w/out prodromal symptoms - CT brain and c-spine negative - PT/OT recommended home PT once discharged. Daughter is in the process of organizing this. - X-ray sacrum and coccyx showed possible acute minimally displaced fracture - pt not complaining of pain -> no need for ortho consult/surgery. continue w/ pain management if needed Total Time Spent: Greater than 30 minutes This includes examination of the patient, discharge planning, medication reconciliation, and communication with other providers. Discharge Instructions Please refer to the electronic Patient Visit Report (Discharge Instructions) for additional information. Additional Copies To Madi Borja M.D. Resident Tracking Resident Involvement: Resident Care Provided Care Provided: Adult [facility] Medicine Assessment/Plan Resident Physician Supervision Note: I was present with Dr. Whitley during the history and exam. I discussed the case with the resident and agree with the findings and plan as documented in the note. Any exceptions or clarifications are listed here: Pt seen and examined at bedside. Resting comfortably in bed on nasal cannula and looking forward to going home. On examination, S1/S2 nl RRR, CTAB. Abd NT/ND Acute on chronic hypoxic respiratory failure - 2 step failed, will need chronic NC - continue spiriva, ICS UTI - transitioned to macrobid to complete course
== END 2017-09-30 18:13 | disposition home health service (06) | DRG 190 ==
LOC: C.EDB 15:35 → C.2T 20:04 → ENRESERV 20:22
PROVIDERS: ADMIT Internal Medicine; ATTEND Family Medicine
DX: J44.1 Chronic obstructive pulmonary disease with (acute) exacerbation (principal); J96.21 Acute and chronic respiratory failure with hypoxia; N39.0 Urinary tract infection, site not specified; Z91.81 History of falling; I10 Essential (primary) hypertension; K21.9 Gastro-esophageal reflux disease without esophagitis; F41.9 Anxiety disorder, unspecified; E78.5 Hyperlipidemia, unspecified